=== PATIENT | female | born 1965 | race Caucasian/White ===

== ENCOUNTER → 2017-09-20 | Outpatient (REF) | payer OTHER, BC ==
[2017-09-20 19:59] LABS: APPEARANCE, URINE CLEAR (CLEAR); BACTERIA, URINE AUTO NEGATIVE (NEGATIVE); BILIRUBIN, URINE AUTO NEGATIVE (NEGATIVE); BLOOD, URINE BLOOD 1+ (NEGATIVE); COLOR, URINE STRAW (YELLOW); GLUCOSE, URINE (UA) AUTO NEGATIVE (NEGATIVE); KETONE, URINE AUTO NEGATIVE (NEGATIVE); LEUKOCYTE ESTERASE, URINE AUTO NEGATIVE (NEGATIVE); NITRITE, URINE AUTO NEGATIVE (NEGATIVE); PROTEIN, URINE AUTO NEGATIVE (NEGATIVE); RBC, URINE AUTO 0 /HPF (0-3); SPECIFIC GRAVITY URINE AUTO 1.008 (1.002-1.035); SQUAMOUS EPITHELIAL CELL UR AU 1 /HPF (0-6); UROBILINOGEN, URINE AUTO 0.2 mg/dL (0.0-2.0); WBC, URINE AUTO 0 /HPF (0-3)
== END ==
LOC: M SMT 17:05
DX: R31.0 Gross hematuria (principal)

== ENCOUNTER 2020-01-05 13:49 | Inpatient (IN) | payer BC, OTHER ==
[2020-01-05 15:25] VITALS: BP 109/70
[2020-01-05] MEDS ORDERED: MORPHINE 2 MG/ML 1ML VIAL (J2270) IV PRN (16:45)
[2020-01-05] MEDS ORDERED: HEPARIN SOD (PORCINE) 5000UNITS/ML 1ML VIAL/SYRINGE SQ SCH (16:45)
[2020-01-05] MEDS ORDERED: ACETAMINOPHEN TAB 650MG DOSE (2X325MG) PO PRN (16:45)
--- NOTE | 2020-01-05 17:04 | HPEPDOC ---
[facility] Medical History & Physical Date of Admission Jan 05, 2020 Date of Service: Jan 05, 2020 Attending Physician: ALEJANDRA SHERMAN MD History and Physical CHIEF COMPLAINT: Obstructive Ureter Stone HISTORY OF PRESENT ILLNESS: The is a 54yo female with past medical history of nephrolithiasis who presented to [facility] in [place], [place], after awakening at 4:30am with extreme L flank pain. She described the pain as a 10/10 stabbing pain. The pain initially started around her umbilicus before moving to the L flank. She had a previous temperature of 100.6 deg. She went to the ER in [place], where she was found to have an obstructive ureter stone. On other labs she had a mild CORDELIA with a creatinine of 1.3. Otherwise she was vitally stable. She was transferred to [facility] [place] for urology consultation and potential ureter stent placement surgery. At presentation to [facility] she was vitally stable and not in significant pain. No new complaints. Urology was consulted, and planned for a potential ureter stent placement. PAST MEDICAL HISTORY: 1. Previous Kidney stones (4) 2. Endometriosis s/p hysterectomy and salpingectomy 3. Carpel tunnel 4. Previous UTIs 5. Bursitis L knee PAST SURGICAL HISTORY: 1. Exploratory laparoscopy for endometriosis complicated by cardiac arrest 20y ago. 2. Total hysterectomy and salpingectomy 20y ago. 3. Carpel tunnel surgery. SOCIAL HISTORY: Marital status: 36y. 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 Quit when she was 18. Up to one pack a day. ETOH: Social drinker. Drinks up to 12 beers of Coors Light a week. Illicit drug use: Denies IV drug use: Denies FAMILY HISTORY: Father: at 70yo of COPD. Had pancreatic cancer Mother: Alive. Had breast cancer ALLERGIES: Please see below. REVIEW OF SYSTEMS: CONSTITUTIONAL: Positive for Fatigue HEENT: Positive for headache. CARDIOVASCULAR: Denies chest pain, palpatations, leg swelling. RESPIRATORY: Positive for sinus congestion and cough productive of green sputum from post nasal drip. Denies SOB, wheezing. GASTROINTESTINAL: Positive for nausea, diarrhea and constipation. Denies vomiting. GENITOURINARY: Positive for blood in the urine. Denies pyuria. SKIN: Denies any skin changes. NEUROLOGICAL: Denies numbness or tingling. HOME MEDICATIONS: Please see below. PHYSICAL EXAMINATION: VITALS: See below GENERAL APPEARANCE: Patient is alert and oriented and not in any acute distress. She appears her stated age and is overweight. . HEENT: Tongue is midline. CARDIOVASCULAR: RRR, S1 and S2 noted. No murmurs, gallops or rubs are appreciated LUNGS: Lungs are clear to auscultation. No wheezing, rales or rhonchi are noted. ABDOMEN: Abdomen is soft and nondistended. There is a 3/10 pain on palpation in the L lower quadrant. EXTREMITIES: There is no edema in the legs. LABORATORY DATA: See below. IMAGING: Jan 04, CT Abdomen/Pelvis. Dr. Rosenthal. "6mm Left ureteropelvic junction stone. Mild left hydronephrosis as well as edea and swelling of the left kidney." MICROBIOLOGY: Please see below. ASSESSMENT: The patient is a 54y female with a past medical history of kidney stones, presenting to the ED for an obstructive ureter stone. She is consulting urology today for possible ureter stent placement, and will be kept under management by the hospitalist team while inpatient. PLAN: 1. Obstructive Nephrolithiasis with Possible Pyelonephritis. -Consult with urology for possible stent placement. -NPO for procedure. -Continue fluids and fingersticks q6h -Continue patient on Toradol for pain management PRN -Continue IV fluids NS-She reports that she drink 3 large cups of water per day -Start Zosyn for pyelonephritis. 2. Elevated Creatinine -Unsure of patients baseline, though this is likely due to obstructive ureter stone. -Will likely resolve with stent placement. 3. DVT Prophylaxis -Mechanical sequentials Vital Signs Vital Signs Date Time Temp Pulse Resp B/P (MAP) Pulse Ox O2 Delivery O2 Flow Rate FiO2 01/05/20 15:25 98.1 91 19 109/70 (83) 95 Room Air Home Medications Scheduled PRN Acetaminophen (Acetaminophen) 325 Mg Tablet, 650 MG PO Q6H PRN for PAIN / FEVER Allergies Coded Allergies: No Known Allergies (Unverified , 01/05/20) GME ATTESTATION GME ATTESTATION My faculty preceptor for this patient encounter was physically present during the encounter and was fully available. All aspects of the patient interview, examination, medical decision making process, and medical care plan development were reviewed and approved by the faculty preceptor. The faculty preceptor is aware and concurs with the plan as stated in the body of this note and will attest to such by his/her cosignature. ATTENDING NOTE Attending Note: Patient seen and examined independently. Agree with student's note. TAVARES BARILLAS Jan 05, 2020 17:04 ALEJANDRA SHERMAN MD Jan 07, 2020 07:05
[2020-01-05] MEDS ORDERED: KETOROLAC 30 MG/ML 1ML VIAL IV PRN (17:30)
[2020-01-05 17:43] LABS: HEMATOCRIT 36.6 % (36.0-47.0); HEMOGLOBIN 11.7 g/dl (12.0-15.5); MEAN CORPUSCULAR HEMOGLOBIN 29.8 pg (27.0-33.0); MEAN CORPUSCULAR VOLUME 93.4 fl (80.0-96.0); PLATELET COUNT, AUTOMATED 225 10^3/uL (150-450); RED BLOOD COUNT 3.92 10^6/uL (4.00-5.40); WHITE BLOOD COUNT 18.5 10^3/uL (4.0-10.0)
[2020-01-05] MEDS ORDERED: ACET1TAB55 PO (17:45)
[2020-01-05] MEDS ORDERED: HumaLOG INSULIN (NovoLOG) PER UNIT SC SCH (18:00)
[2020-01-05 18:05] LABS: ALBUMIN 3.1 GM/DL (3.2-5.2); BILIRUBIN,TOTAL 0.6 MG/DL (0.2-1.0); CALCIUM LEVEL 8.3 MG/DL (8.5-10.1); CREATININE FOR GFR 1.21 MG/DL (0.55-1.30); GLOMERULAR FILTRATION RATE 49.4 (>51); POTASSIUM SERUM 4.9 MEQ/L (3.5-5.1); TOTAL PROTEIN 6.5 GM/DL (6.4-8.2)
[2020-01-05] MEDS: NS 1,000 ML IV SCH (18:06)
[2020-01-05 18:32] LABS: ATYPICAL LYMPH 1 % (0-5); BASOPHILS 1 % (0-1); LYMPHOCYTES 10 % (16-44); METAMYELOCYTES 1 % (0-0); MONOCYTES 4 % (0-5); NEUTROPHILS 69 % (28-66)
[2020-01-05 18:33] LABS: PLATELET ESTIMATE NORMAL (NORMAL)
[2020-01-05] MEDS: PIPERACILLIN/TAZOBACTAM SOD 3.375 GM in D5W MINI-BAG PLUS 50 ML IV SCH ×2 (18:35→23:49)
[2020-01-05] MEDS ORDERED: MIDAZOLAM INJ 2MG/2ML VIAL (J2250 PER 1MG) As Ordered ONE (20:26)
[2020-01-05] MEDS ORDERED: fentaNYL 100 MCG/2 ML INJECTION (J3010) As Ordered ONE (20:26)
[2020-01-05 20:40] VITALS: BP 132/78
[2020-01-05] MEDS ORDERED: LIDOCAINE 2% 5ML JELLY UROJET As Ordered ONE (20:48)
[2020-01-05] MEDS ORDERED: propofoL 200 MG/20 ML VIAL As Ordered ONE (21:22)
[2020-01-05] MEDS ORDERED: LIDOCAINE 2% 100MG/5ML SDV (FOR ANES.) As Ordered ONE (21:22)
--- NOTE | 2020-01-05 21:39 | ROOPDOC ---
[facility] Report Of Operation Report of Operation DATE OF PROCEDURE: 01/05/20 PREPROCEDURE DIAGNOSES: [L ureteral stone with UTI]. POSTPROCEDURE DIAGNOSES: [same]. PROCEDURE: [Cysto, L stent placement]. SURGEON: [Mita]MD ENVIRONMENTAL ENGINEERING INTERN: , ANESTHESIA: [local/sedation]. ESTIMATED BLOOD LOSS: Approximately [0] mL. COMPLICATIONS: [0]. REMARKS: [6 fr stent without string]. PROCEDURE NOTE: [see dictation]. DESCRIPTION OF PROCEDURE: [see dictation]. KEVIN CARPENTER MD Jan 05, 2020 21:39
[2020-01-05] MEDS ORDERED: KETOROLAC 30 MG/ML 1ML VIAL As Ordered ONE (21:48)
[2020-01-05] MEDS ORDERED: PERCOCET 5MG/325MG TAB PO PRN (22:00)
[2020-01-05] MEDS ORDERED: METOCLOPRAMIDE INJ 10MG/2ML VIAL (J2765 PER 1) IV PRN (22:00)
[2020-01-05] MEDS ORDERED: fentaNYL 100 MCG/2 ML INJECTION (J3010) IV PRN (22:00)
[2020-01-05] MEDS ORDERED: ONDANSETRON 4MG/2ML VIAL IV PRN (22:00)
[2020-01-05] MEDS ORDERED: LR 1,000 ML IV SCH (22:00)
[2020-01-05 22:15] VITALS: BP 112/66
[2020-01-05 22:45] VITALS: BP 112/65
[2020-01-05 23:45] VITALS: BP 111/53
[2020-01-06 00:45] VITALS: BP_SYST 107; BP_SYST 119; BP_DIAS 57; BP_DIAS 60
[2020-01-06 01:45] VITALS: BP 119/60
[2020-01-06 02:45] VITALS: BP 109/58
[2020-01-06] MEDS: NS 1,000 ML IV SCH ×2 (03:52→15:49)
[2020-01-06] MEDS: PIPERACILLIN/TAZOBACTAM SOD 3.375 GM in D5W MINI-BAG PLUS 50 ML IV SCH ×3 (05:58→18:32)
[2020-01-06 06:00] VITALS: BP 113/68
--- NOTE | 2020-01-06 06:06 | ECGEPIP ---
[facility] Test Date: 2020-01-05 Pat Name: YUNIEL SUAZO Department: Room: [place] [address] Gender: Female Rn First Assist: : 1965 Requested By: KEVIN Miguel Order Number: [id number] Reading MD: Angie Gutierrez Measurements Intervals [place] Rate: 81 P: 25 MS: 148 QRS: -3 QRSD: 82 T: -5 QT: 376 QTc: 438 Interpretive Statements SINUS RHYTHM POSSIBLE INFERIOR MYOCARDIAL INFARCTION, PROBABLY OLD NSSTTW ABN NO PRIOR PRWP Electronically Signed on 01-06-2020 6:06:09 EST by Angie Gutierrez
--- NOTE | 2020-01-06 07:45 | REP ---
INDICATION: CYSTO WITH STENT PLACEMENT. COMPARISON: None TECHNIQUE: Single spot view obtained using a portable C-arm device in my abstentia FINDINGS: The mid and upper portions of a left-sided pigtail catheter is present. The proximal portion appears to be in the region of the renal pelvis. IMPRESSION: As above. 3 seconds of fluoroscopy time was provided for the exam. <Electronically signed by Kevan Malik > 01/06/20 0753
[2020-01-06 07:52] LABS: HEMATOCRIT 32.6 % (36.0-47.0); HEMOGLOBIN 10.4 g/dl (12.0-15.5); MEAN CORPUSCULAR HEMOGLOBIN 29.6 pg (27.0-33.0); MEAN CORPUSCULAR HGB CONC 31.9 g/dl (32.0-36.5); MEAN CORPUSCULAR VOLUME 92.9 fl (80.0-96.0); PLATELET COUNT, AUTOMATED 203 10^3/uL (150-450); RED BLOOD COUNT 3.51 10^6/uL (4.00-5.40)
[2020-01-06 08:05] LABS: CREATININE FOR GFR 1.31 MG/DL (0.55-1.30); POTASSIUM SERUM 4.1 MEQ/L (3.5-5.1)
--- NOTE | 2020-01-06 11:41 | IPNPDOC ---
Text Note Date of Service The patient was seen on 01/06/20. NOTE Subjective: Patient seen and examined at bedside. Overnight underwent left ureteral stent placement. This morning has no medical complaints. Objective: VITALS: See below GENERAL APPEARANCE: Patient is alert and oriented and not in any acute distress. She appears her stated age and is overweight. . HEENT: NC/AT, EOMI, PERRL CARDIOVASCULAR: RRR, S1 and S2 noted. No murmurs, gallops or rubs are appreciated LUNGS: Lungs are clear to auscultation. No wheezing, rales or rhonchi are noted. ABDOMEN: soft, NT, ND, +BS EXTREMITIES: There is no edema in the legs. A/P: 54F transferred from [facility] for pyelonephritis with obstructive ureteral stone found on imaging. Patient was reported to be septic. Admitted for urology consultation with possible procedural intervention. #obstructive uropathy/history of nephrolithiasis - underwent stent placement last night - follow as per urology - assistance appreciated - continue antibiotics, IV fluids - contacted [facility] - UA was done but no urine cultures - will obtain one here - ordered #DVT prophylaxis - mechanical VS,Fishbone, I+O VS, Fishbone, I+O Laboratory Tests 01/05/20 17:18 01/06/20 07:30 Vital Signs Date Time Temp Pulse Resp B/P (MAP) Pulse Ox O2 Delivery O2 Flow Rate FiO2 01/06/20 06:00 99.5 79 18 113/68 (83) 96 Room Air I&O- Last 24 Hours up to 6 AM 01/06/20 06:00 Intake Total 1040 ml Output Total 875 ml Balance 165 ml ALEJANDRA SHERMAN MD Jan 06, 2020 11:41
--- NOTE | 2020-01-06 12:14 | IPNPDOC ---
Subjective Review oF Systems Chief Complaint The patient is a 54-year-old female admitted with a reason for visit of Obstructive Stone (6MM). Events since Last Encounter Pt feels much improved today. Some spasms. Temp to 99 range overnight. WBC trending down. General: Reports: Normal Appetite; Denies: ROS Unobtainable, Chills, Night Sweats, Fatigue, Malaise, Other Symptoms Constitutional: Denies: Fever, Chills, Sweats, Weakness, Malaise, Other Eyes: Denies: Pain, Vision change, Conjunctivae inflammation, Eyelid inflammation, Redness, Other ENT: Reports: Sinus Congestion, Post Nasal Drip Skin: Denies: Rash, Lesions, Jaundice, Bruising, Itching, Dry, Breakdown, Nail Changes, Other Pulmonary: Reports: Cough Gastrointestinal: Denies: Nausea, Vomiting, Abdominal Pain, Diarrhea, Constipation, Melena, Hematochezia, Other Symptoms Genitourinary: Reports: Frequency Objective Physical Examination General Exam: Alert, Cooperative, No Acute Distress Eye Exam: EOMI ENT EXAM: Atraumatic Chest Exam: Normal air movement Vital Signs/I&O Vital Signs Date Time Temp Pulse Resp B/P (MAP) Pulse Ox O2 Delivery O2 Flow Rate FiO2 01/06/20 06:00 99.5 79 18 113/68 (83) 96 Room Air I&O- Last 24 Hours up to 6 AM 01/06/20 06:00 Intake Total 1040 ml Output Total 875 ml Balance 165 ml Laboratory Data Labs 24H Laboratory Tests 2 01/05/20 17:18: Neutrophils (%) (Auto) , Nucleated Red Blood Cells % (auto) 0.0, Neutrophils 69H, Band Neutrophils 14H, Lymphocytes (Manual) 10L, Monocytes (Manual) 4, B asophils (Manual) 1, Metamyelocytes 1H, Atypical Lymphocytes 1, Platelet Estimate NORMAL, Anion Gap 4L, Glomerular Filtration Rate 49.4L, Lactic Acid Level 1.4, Calcium Level 8.3L, Total Bilirubin 0.6, Aspartate Amino Transf (AST/SGOT) 34, Alanine Aminotransferase (ALT/SGPT) 43, Alkaline Phosphatase 65, Total Protein 6.5, Albumin 3.1L, Albumin/Globulin Ratio 0.9L 01/06/20 07:30: Nucleated Red Blood Cells % (auto) 0.0, Anion Gap 6L, Glomerular Filtration Rate 45.0L, Calcium Level 8.0L CBC/BMP Laboratory Tests 01/05/20 17:18 01/06/20 07:30 Assessment/Plan Date Seen The patient was seen on 01/06/20. Patient Summary Impression: Improving post stenting of ureteral stone and possible UTI P: Check C&S from [facility]. If neg or if S known, she may be able to go home tomorrow if she continues to do this well. Plan/VTE VTE Prophylaxis Ordered?: Yes Plan Diet: Continue Current Anticipated Discharge: Home KEVIN CARPENTER MD Jan 06, 2020 12:14
[2020-01-06 14:00] VITALS: BP 118/76
[2020-01-06] MEDS: PERCOCET 5MG/325MG TAB PO PRN (16:06)
[2020-01-06 22:00] VITALS: BP 105/61
[2020-01-07] MEDS: PIPERACILLIN/TAZOBACTAM SOD 3.375 GM in D5W MINI-BAG PLUS 50 ML IV SCH ×3 (00:22→12:00)
[2020-01-07] MEDS: NS 1,000 ML IV SCH (02:06)
[2020-01-07] MEDS: PERCOCET 5MG/325MG TAB PO PRN (04:48)
[2020-01-07 06:00] VITALS: BP 110/59
[2020-01-07 08:03] LABS: HEMATOCRIT 32.4 % (36.0-47.0); HEMOGLOBIN 10.1 g/dl (12.0-15.5); MEAN CORPUSCULAR HEMOGLOBIN 29.7 pg (27.0-33.0); MEAN CORPUSCULAR HGB CONC 31.2 g/dl (32.0-36.5); MEAN CORPUSCULAR VOLUME 95.3 fl (80.0-96.0); PLATELET COUNT, AUTOMATED 205 10^3/uL (150-450)
--- NOTE | 2020-01-07 08:42 | IPNPDOC ---
Subjective Review oF Systems Chief Complaint The patient is a 54-year-old female admitted with a reason for visit of Obstructive Stone (6MM). Events since Last Encounter No complaint except H/A and URI sx General: Denies: ROS Unobtainable, Chills, Night Sweats, Fatigue, Malaise, Normal Appetite, Other Symptoms Constitutional: Denies: Fever, Chills, Sweats, Weakness, Malaise, Other ENT: Reports: Head Aches, Post Nasal Drip Skin: Denies: Rash, Lesions, Jaundice, Bruising, Itching, Dry, Breakdown, Nail Changes, Other Pulmonary: Reports: Cough Cardiovascular: Denies Chest Pain, Denies Palpitations, Denies Orthopnea, Denies Paroxysmal Noc. Dyspnea, Denies Edema, Denies Lt Headedness, Denies Other Symptoms Gastrointestinal: Denies: Nausea, Vomiting, Abdominal Pain, Diarrhea, Constipation, Melena, Hematochezia, Other Symptoms Genitourinary: Reports: Frequency Objective Physical Examination General Exam: Alert, Cooperative, No Acute Distress Eye Exam: EOMI ENT EXAM: Atraumatic Chest Exam: Normal air movement Vital Signs/I&O Vital Signs Date Time Temp Pulse Resp B/P (MAP) Pulse Ox O2 Delivery O2 Flow Rate FiO2 01/07/20 06:00 98.6 70 16 110/59 (76) 91 Room Air I&O- Last 24 Hours up to 6 AM 01/07/20 06:00 Intake Total 1790 ml Output Total 400 ml Balance 1390 ml Laboratory Data Labs 24H Laboratory Tests 2 01/07/20 07:13: Nucleated Red Blood Cells % (auto) 0.0 01/07/20 07:50: CBC/BMP Laboratory Tests 01/07/20 07:13 Assessment/Plan Date Seen The patient was seen on 01/07/20. Patient Summary A: S/P L stent placement. Apparently, no urine or blood cultures were done @ [facility] prior to antibiotics... P: Check KUB. Should be ok for discharge on pyridium prn and septra DS hs x 20 days. F/U in 1 week with [facility] Urology to arrange left eswl vs ureteroscopic stone extraction. Plan/VTE VTE Prophylaxis Ordered?: Yes Plan Diet: Continue Current Anticipated Discharge: Home KEVIN CARPENTER MD Jan 07, 2020 08:42
[2020-01-07 09:47] LABS: CALCIUM LEVEL 8.4 MG/DL (8.5-10.1); CREATININE FOR GFR 1.16 MG/DL (0.55-1.30); GLOMERULAR FILTRATION RATE 51.8 (>51); POTASSIUM SERUM 4.2 MEQ/L (3.5-5.1)
--- NOTE | 2020-01-07 09:53 | REP ---
INDICATION: F/U L Proximal ureteral stone post stenting. COMPARISON: Spot view obtained using a portable C-arm device on 01/05/2020. FINDINGS: KUB shows the intestinal gas pattern to be nonspecific. The organ silhouettes insofar as delineated are unremarkable. There is no evidence of free intraperitoneal air. The proximal portion of the left-sided double pigtail stent is unchanged. The distal portion is seen in the urinary bladder region on the left. Bilateral pelvic calcifications are identified likely phleboliths. This needs to be correlated clinically. IMPRESSION: As above. If necessary obtain noncontrast enhanced CT. <Electronically signed by Kevan Malik > 01/07/20 0935
[2020-01-07] MEDS ORDERED: PYRI1TAB5 PO (09:55)
[2020-01-07] MEDS ORDERED: BACT800T5 PO (09:55)
[2020-01-07] MEDS ORDERED: PERCOCET PO (09:57)
--- NOTE | 2020-01-07 10:36 | DS.PDOC ---
Discharge Summary General Date of Admission Jan 05, 2020 at 15:20 Date of Discharge 01/07/20 Specialist/Consultants Involve Urology Discharge Summary PROCEDURES PERFORMED DURING STAY: left ureteral stent DISCHARGE DIAGNOSES: 1. obstructive uropathy 2. nephrolithiasis COMPLICATIONS/CHIEF COMPLAINT: Obstructive Stone (6MM). HISTORY OF PRESENT ILLNESS: 54 F who presented to [facility] in [place], [place], after awakening at 4:30am with extreme L flank pain. She described the pain as a 10/10 stabbing pain. The pain initially started around her umbilicus before moving to the L flank. She had a previous temperature of 100.6 deg. She went to the ER in [place], where she was found to have an obstructive ureter stone, with CORDELIA. She was transferred to [facility] for urology consultation and potential ureter stent placement surgery. HOSPITAL COURSE: Patient seen and evaluated by urology. Started IV antibiotics, and underwent left ureteral stent placement. Renal function and leukocytosis improved. Follow up with urology, with recs for o/p follow up. Her pharmacy noted a sulfa allergy in the past, so antibiotics were changed to cipro. DISCHARGE MEDICATIONS: Please see below. ALLERGIES: Please see below. PHYSICAL EXAMINATION ON DISCHARGE: VITALS: See below GENERAL APPEARANCE: Patient is alert and oriented and not in any acute distress. She appears her stated age and is overweight. . HEENT: NC/AT, EOMI, PERRL CARDIOVASCULAR: RRR, S1 and S2 noted. No murmurs, gallops or rubs are appreciated LUNGS: Lungs are clear to auscultation. No wheezing, rales or rhonchi are noted. ABDOMEN: soft, NT, ND, +BS EXTREMITIES: There is no edema in the legs. LABORATORY DATA: Please see below. ACTIVITY: [As tolerated]. DISCHARGE PLAN: Discharge home DISCHARGE INSTRUCTIONS: 1. F/U in 1 week with [facility] Urology to arrange left eswl vs ureteroscopic stone extraction. DISCHARGE CONDITION: [Stable]. TIME SPENT ON DISCHARGE: 35 minutes. Vital Signs/I&Os Vital Signs Date Time Temp Pulse Resp B/P (MAP) Pulse Ox O2 Delivery O2 Flow Rate FiO2 01/07/20 06:00 98.6 70 16 110/59 (76) 91 Room Air I&O- Last 24 Hours up to 6 AM 01/07/20 06:00 Intake Total 1790 ml Output Total 400 ml Balance 1390 ml Laboratory Data Labs 24H Laboratory Tests 2 01/07/20 07:13: Nucleated Red Blood Cells % (auto) 0.0 01/07/20 07:50: Anion Gap 5L, Glomerular Filtration Rate 51.8, Calcium Level 8.4L CBC/BMP Laboratory Tests 01/07/20 07:13 01/07/20 07:50 Discharge Medications Scheduled Sulfamethoxazole/Trimethoprim (Bactrim Ds Tablet) 1 Each Tablet, 1 TAB PO BID Scheduled PRN Acetaminophen (Acetaminophen) 325 Mg Tablet, 650 MG PO Q6H PRN for PAIN / FEVER, (Reported) Oxycodone/Acetaminophen (Oxycodone-Acetaminophen 5-325) 1 Each Tablet, 1 TAB PO Q6HP PRN for MODERATE PAIN (PS 5-7) Phenazopyridine HCl (Pyridium) 200 Mg Tablet, 1 TAB PO TIDP PRN for urinary discomfort Allergies Coded Allergies: No Known Allergies (Unverified , 01/05/20) ALEJANDRA SHERMAN MD Jan 07, 2020 10:36
[2020-01-07] MEDS ORDERED: CIPR-249 PO (10:46)
--- NOTE | 2020-01-07 11:28 | REP ---
INDICATION: further eval as per kub. COMPARISON: None TECHNIQUE: Noncontrast enhanced stone protocol. FINDINGS: The lung bases are clear. Limited evaluation of the solid intra-organs and gallbladder show no gross abnormalities. Limited evaluation of the pancreas, adrenal glands, and right kidney show no gross abnormalities. A double pigtail stent is seen on the left the proximal portion of which appears to be within one of the superior pole calices. It is uncoiled. The distal portion of the stent is in the urinary bladder. There are no nephroliths. There is no hydronephrosis or hydroureter. No abnormal calcifications are seen along the course of the left stent. There are no abnormal urinary bladder calcifications. There are bilateral pelvic phleboliths. No free fluid or free air is seen. Limited evaluation of the bowel loops and the mesenteries show no gross abnormalities. There is mild perinephric stranding. Limited evaluation of the abdominal aorta and para-regions show no gross abnormalities. The osseous structures are within normal limits. IMPRESSION: Left-sided double pigtail stent, as described above. The proximal portion of the stent is uncoiled and is seen very close to, if not frankly breaching, the left upper pole cortex. There is mild left perinephric stranding. There is no chemo abnormal perinephric fluid collection. This finding should be correlated clinically with close follow-up. Other findings as described above. <Electronically signed by Kevan Malik > 01/07/20 [id number]
--- NOTE | 2020-01-08 14:04 | RO ---
DATE OF OPERATION: PREOPERATIVE DIAGNOSIS: Left ureteral stone with evidence of UTI. POSTOPERATIVE DIAGNOSIS: Left ureteral stone with evidence of UTI. PROCEDURE PERFORMED: * Cystoscopy. * Stent placement. SURGEON: Andrea Fan MD ANESTHESIA: General. INDICATIONS: This 54-year-old lady presented with evidence of urinary tract infection and obstructing 6 mm left proximal ureteral stone. She was transferred from [facility]. Her has previously been under the care of Dr. Soni. Her white count penny from 10 to 18, lactate 1.4. Urinalysis showed pyuria. PROCEDURE: After obtaining informed consent with the patient she was taken to the operating room, after adequate sedation and local anesthetic, she was prepped and draped in usual manner. 22-Indonesian diagnostic cystoscope was advanced into the bladder, the bladder inspected and no lesions were seen. Wire was advanced on the left side to the kidney under fluoroscopic control. We passed a 6-Indonesian universal stent over the wire and positioned it fluoroscopically in the kidney and bladder with string detached. Endoscopic and fluoroscopic confirmation of stent position was obtained. The bladder was emptied and the patient was transferred to recovery in satisfactory condition. DISPOSITION: She is to continue in the hospital for management of potential sepsis. She will eventually need a secondary procedure to deal with her stone and remove her stent. COMPLICATIONS: None. SPECIMEN: None. BLOOD LOSS: None. MTDD
--- NOTE | 2020-01-09 09:47 | CR ---
DATE OF CONSULTATION: 01/05/2020 REASON FOR CONSULTATION: Suspected sepsis related to left-sided stone disease. CHIEF COMPLAINT: Left-sided pain. HISTORY: This 54-year-old, 2, para 2 lady with prior hysterectomy, prior history of spontaneous stone passage on the left side, developed severe left flank and abdominal pain associated with nausea and vomiting and temperature elevation to 100.6 today. She was seen at [facility] where a CT scan revealed a 6 mm left proximal ureteral stone which is visible on plain film segments. There was some perinephric and periureteral stranding consistent with extravasation. White count was elevated to 10, repeat 18, lactate 1.4, creatinine elevated to 1.3. The patient has an intercurrent upper respiratory infection (URI). She is COVID negative. She has had no hypotension. Her past history is significant for a laparoscopic procedure that was complicated by cardiac arrest requiring defibrillation. Subsequent to this she had a successful abdominal hysterectomy and salpingectomy. Other surgeries include carpal tunnel syndrome surgery and root canal done under local. She does have a past history of urinary tract infections. SOCIAL HISTORY: She is , retired, a nonsmoker, she drinks socially. FAMILY HISTORY: Negative for stones. Positive for breast and pancreatic cancer. MEDICATIONS: She only takes occasional Motrin. ALLERGIES: She is sensitive to shellfish and SULFA DRUGS. She tends to get side effects from multiple medications. REVIEW OF SYSTEMS: Remarkable for URI symptoms. She does have a past history of headaches. She has a history of cardiac arrest with no ongoing cardiac symptoms or problems. She is not ordinarily limited in her activities by dyspnea or pain. The remainder of review of systems negative as noted in the chart. PHYSICAL EXAMINATION: Temperature is 98.1, pulse 91, respirations 19, blood pressure 109/70, saturation 95. General: She is an anxious lady who is awake, alert, and oriented. She is very concerned about the possible risks of general anesthesia. HEENT: She has some rhinorrhea. Her face is symmetrical. Full extraocular movements are noted. Neck is supple. Chest: Clear to auscultation. Cardiac exam: Regular rate and rhythm. Abdominal exam: Soft with some tenderness in the left flank and left upper quadrant. No peritoneal signs are noted. Extremities exam: No edema. Neurologic exam: Nonfocal. IMPRESSION: Possible sepsis related to left-sided stone disease in a patient with an intercurrent upper respiratory infection (URI). PLAN: I think it most prudent to be certain that her system is decompressed and to this end advise placement of a ureteral stent expeditiously. This can be done under sedation. The risks including infection, bleeding, anesthetic reaction, the need for additional or repeat procedures and the alternatives of percutaneous nephrostomy tube placement are discussed. She verbalizes understanding and wishes to proceed. Her questions are answered and she is agreeable to this plan. TIGIST
[2020-01-09] MEDS ORDERED: DOXY100C (13:53)
== END 2020-01-07 12:50 | disposition home or self-care (01) | DRG 465 ==
LOC: M MS5PR 15:20
PROVIDERS: ADMIT Internal Medicine; ATTEND Internal Medicine
PROC: 0T778DZ Dilation of Left Ureter with Intraluminal Device, Via Natural or Artificial Opening Endoscopic (ICD-10-PCS; principal; 2020-01-05 21:00)
DX: N20.1 Calculus of ureter (principal); N17.9 Acute kidney failure, unspecified; Z88.2 Allergy status to sulfonamides; Z79.899 Other long term (current) drug therapy; Z87.891 Personal history of nicotine dependence; N39.0 Urinary tract infection, site not specified

== ENCOUNTER → 2020-01-08 | Outpatient (CLI) | payer OTHER ==
[~2020-01-08] MED LIST: ACET1TAB55 PO; BACT800T5 PO; CIPR-249 PO; DOXY100C; FLOM0.4C39 PO; PERCOCET PO; PYRI1TAB5 PO
[2020-01-08 18:11] LABS: HEMOGLOBIN 11.5 g/dl (12.0-15.5); MEAN CORPUSCULAR HEMOGLOBIN 29.2 pg (27.0-33.0); MEAN CORPUSCULAR HGB CONC 31.1 g/dl (32.0-36.5); MEAN CORPUSCULAR VOLUME 93.9 fl (80.0-96.0); PLATELET COUNT, AUTOMATED 282 10^3/uL (150-450); RED BLOOD COUNT 3.94 10^6/uL (4.00-5.40); WHITE BLOOD COUNT 9.7 10^3/uL (4.0-10.0)
[2020-01-08 18:27] LABS: CALCIUM LEVEL 8.8 MG/DL (8.5-10.1); CREATININE FOR GFR 1.06 MG/DL (0.55-1.30); GLOMERULAR FILTRATION RATE 57.5 (>51)
== END ==
LOC: M LAB 16:17
PROVIDERS: ATTEND Urology
DX: N20.0 Calculus of kidney (principal)

== ENCOUNTER → 2020-01-09 | Outpatient (CLI) | payer OTHER | LOC: M LABSMTC 09:56 | PROVIDERS: ATTEND Anesthesiology | DX: Z01.812 Encounter for preprocedural laboratory examination (principal); Z20.828 Contact with and (suspected) exposure to other viral communicable diseases ==

== ENCOUNTER 2020-01-11 06:06 | Day surgery (SDC) | payer OTHER ==
[~2020-01-11] VITALS: Ht 167.6 cm; Wt 90.7 kg
[~2020-01-11 06:06] MED LIST changes: -FLOM0.4C39 PO; +LR 1,000 ML IV ONE; +ceFAZolin SOD 2 GM in IV 1 EA IV ONE
[2020-01-11] MEDS ORDERED: ONDANSETRON 4MG/2ML VIAL As Ordered ONE (07:49)
[2020-01-11] MEDS ORDERED: propofoL 200 MG/20 ML VIAL As Ordered ONE (07:49)
[2020-01-11] MEDS ORDERED: LIDOCAINE 2% 100MG/5ML SDV (FOR ANES.) As Ordered ONE (07:49)
[2020-01-11] MEDS ORDERED: fentaNYL 100 MCG/2 ML INJECTION (J3010) As Ordered ONE (07:49)
[2020-01-11] MEDS ORDERED: KETAMINE HCL 200 MG/20 ML VIAL As Ordered ONE (07:49)
[2020-01-11] MEDS ORDERED: MIDAZOLAM INJ 2MG/2ML VIAL (J2250 PER 1MG) As Ordered ONE (07:49)
[2020-01-11] MEDS ORDERED: GLYCOPYRROLATE INJ 0.2 MG/ML 2 ML VIAL As Ordered ONE (07:49)
[2020-01-11] MEDS ORDERED: FLOM0.4C39 PO (08:07)
--- NOTE | 2020-01-11 08:20 | ROOPDOC ---
[facility] Report Of Operation Report of Operation DATE OF PROCEDURE: 01/11/20 PREPROCEDURE DIAGNOSIS: Left kidney stone. POSTPROCEDURE DIAGNOSIS: Left kidney stone. PROCEDURE: Left extracorporeal shockwave lithotripsy, cystoscopy, removal of left ureteral stent. SURGEON: Dr. Dario Choi STEEL FITTER: None. ANESTHESIA: Monitored anesthesia care (MAC). OPERATIVE INDICATIONS: This is a 54-year-old female who underwent a cystoscopy with left ureteral stent placement recently for an obstructing 6mm proximal left ureteral stone. The stone was pushed up into the kidney at the time of stent placement. She is here today for treatment of the stone and stent removal. DESCRIPTION OF PROCEDURE: The patient brought to the operating room, and MAC anesthesia was administered. Prophylactic antibiotics were infused. She was then prepped and draped in the supine position in the usual sterile fashion. A flexible cystoscope was inserted into the bladder and the left ureteral stent was seen. The stent was grasped and withdrawn from the left collecting system intact. Next left sided extracorporeal shockwave lithotripsy was performed. Fluoroscopy was utilized to monitor stone position and fragmentation throughout the procedure. Shockwaves were then delivered to the left-sided kidney stone ungated. There were no arrhythmias. The stone did appear to fragment well. After 2500 shocks, the procedure was concluded. The patient was then awakened from anesthesia and transported to the recovery room in stable condition. ESTIMATED BLOOD LOSS: 0 mL. COMPLICATIONS: None. SPECIMENS: None. PLAN: The patient will followup in clinic in a few weeks with imaging prior to assess for residual stone burden. DARIO CHOI MD Jan 11, 2020 08:20
[2020-01-11 08:45] VITALS: BP 119/65
== END 2020-01-11 09:05 | disposition home or self-care (01) ==
LOC: M SDC 06:06
PROVIDERS: ATTEND Urology
DX: N20.0 Calculus of kidney (principal); T88.59XD Other complications of anesthesia, subsequent encounter; Z87.891 Personal history of nicotine dependence; Z88.1 Allergy status to other antibiotic agents; Z88.2 Allergy status to sulfonamides; Z90.710 Acquired absence of both cervix and uterus; Z91.013 Allergy to seafood; Z91.048 Other nonmedicinal substance allergy status
CPT/HCPCS: 52352; J2250; J2405; J3010

== ENCOUNTER → 2020-02-05 | Outpatient (CLI) | payer OTHER ==
[~2020-02-05] MED LIST changes: +FLOM0.4C39 PO; -LR 1,000 ML IV ONE; -ceFAZolin SOD 2 GM in IV 1 EA IV ONE
--- NOTE | 2020-02-05 15:13 | REP ---
INDICATION: CALCULUS OF KIDNEY. COMPARISON: Comparison KUB January 07, 2020.. TECHNIQUE: Supine single view of the abdomen and pelvis. FINDINGS: Bowel gas pattern is normal. The upper poles of the kidneys are not included in the field of view. No urinary tract calculus is visible. Phleboliths are noted in the pelvis. Flank stripes are intact. Psoas margins are symmetric. The previously noted left ureteral stent and the previously noted left mid intrarenal calculus are no longer apparent. IMPRESSION: No urinary tract calculus visible. The uppermost portions of each kidney are clipped from the field of view. <Electronically signed by Donnie Bird > 02/05/20 [id number]
== END ==
LOC: M RAD 11:58
PROVIDERS: ATTEND Urology
DX: N20.0 Calculus of kidney (principal)

== ENCOUNTER 2020-12-16 11:32 | Emergency (ER) | payer OTHER ==
[~2020-12-16] VITALS: Ht 165.1 cm; Wt 89.8 kg
[~2020-12-16 11:32] MED LIST changes: -DOXY100C; +DOXY100C3
--- OUTSIDE RECORDS SUMMARY | 2020-12-16 11:42 | CCD ---
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 Name Role Phone Lisset Arias MD Unavailable Unavailable Lisset Arias MD Unavailable Unavailable Lisset Arias MD Unavailable Unavailable Lisset Arias MD Unavailable Unavailable Lisset Arias MD Unavailable Unavailable Lisset Arias MD Unavailable Unavailable Lisset Arias MD Unavailable Unavailable Lisset Arias MD Unavailable Unavailable Lisset Arias MD Unavailable Unavailable Lisset Arias MD Unavailable Unavailable Lisset Arias MD Unavailable Unavailable Lisset Arias MD Unavailable Unavailable Lisset Arias MD Unavailable Unavailable Lisset Arias MD Unavailable Unavailable Lisset Arias MD Unavailable Unavailable Lisset Arias MD Unavailable Unavailable Lisset Arias MD Unavailable Unavailable Lisset Arias MD Unavailable Unavailable Lisset Arias MD Unavailable Unavailable Lisset Arias MD Unavailable Unavailable Lisset Arias MD Unavailable Unavailable Lisset Arias MD Unavailable Unavailable Lisset Arias MD Unavailable Unavailable Lisset Arias MD Unavailable Unavailable Lisset Arias MD Unavailable Unavailable Lisset Arias MD Unavailable Unavailable Lisset Arias MD Unavailable Unavailable Lisset Arias MD Unavailable Unavailable Lisset Arias MD Unavailable Unavailable Lisset Arias MD Unavailable Unavailable Lisset Arias MD Unavailable Unavailable Lisset Arias MD Unavailable Unavailable Lisset Arias MD Unavailable Unavailable Lisset Arias MD Unavailable Unavailable Lisset Arias MD Unavailable Unavailable Lisset Arias MD Unavailable Unavailable Lisset Arias MD Unavailable Unavailable Lisset Arias MD Unavailable Unavailable Lisset Arias MD Unavailable Unavailable Lisset Arias MD Unavailable Unavailable Lisset Arias MD Unavailable Unavailable Lisset Arias MD Unavailable Unavailable Lisset Arias MD Unavailable Unavailable Lisset Arias MD Unavailable Unavailable Lisset Arias MD Unavailable Unavailable Lisset Arias MD Unavailable Unavailable Lisset Arias MD Unavailable Unavailable Lisset Arias MD Unavailable Unavailable Lisset Arias MD Unavailable Unavailable Lisset Arias MD Unavailable Unavailable Lisset Arias MD Unavailable Unavailable Lisset Arias MD Unavailable Unavailable Lisset Arias MD Unavailable Unavailable Lisset Arias MD Unavailable Unavailable Lisset Arias MD Unavailable Unavailable Lisset Arias MD Unavailable Unavailable Lisset Arias MD Unavailable Unavailable Lisset Arias MD Unavailable Unavailable Lisset Arias MD Unavailable Unavailable Lisset Arias MD Unavailable Unavailable Lisset Arias MD Unavailable Unavailable Lisset Arias MD Unavailable Unavailable Lisset Arias MD Unavailable Unavailable Lisset Arias MD Unavailable Unavailable Lisset Arias MD Unavailable Unavailable Lisset Arias MD Unavailable Unavailable Lisset Arias MD Unavailable Unavailable Lisset Arias MD Unavailable Unavailable Lisset Arias MD Unavailable Unavailable Lisset Arias MD Unavailable Unavailable Lisset Arias MD Unavailable Unavailable Lisset Arias MD Unavailable Unavailable Lisset Arias MD Unavailable Unavailable Lisset Arias MD Unavailable Unavailable Lisset Arias MD Unavailable Unavailable Lisset Arias MD Unavailable Unavailable Lisset Arias MD Unavailable Unavailable Lisset Arias MD Unavailable Unavailable Lisset Arias MD Unavailable Unavailable Lisset Arias MD Unavailable Unavailable Lisset Arias MD Unavailable Unavailable Lisset Arias MD Unavailable Unavailable Lisset Arias MD Unavailable Unavailable DiBella, Quang Lindsey MD Unavailable Unavailable DiBella, Quang Lindsey MD Unavailable Unavailable DiBella, Quang Lindsey MD Unavailable Unavailable DiBella, Quang Lindsey MD Unavailable Unavailable DiBella, Quang Lindsey MD Unavailable Unavailable DiBella, Quang Lindsey MD Unavailable Unavailable DiBella, Quang Lindsey MD Unavailable Unavailable DiBella, Quang Lindsey MD Unavailable Unavailable LETTIERE, A DONOVAN PA Unavailable Unavailable LETTIERE, A DONOVAN PA Unavailable Unavailable LETTIERE, A DONOVAN PA Unavailable Unavailable LETTIERE, A DONOVAN PA Unavailable Unavailable LETTIERE, A DONOVAN PA Unavailable Unavailable LETTIERE, A DONOVAN PA Unavailable Unavailable LETTIERE, A DONOVAN PA Unavailable Unavailable LETTIERE, A DONOVAN PA Unavailable Unavailable LETTIERE, A DONOVAN PA Unavailable Unavailable LETTIERE, A DONOVAN PA Unavailable Unavailable LETTIERE, A DONOVAN PA Unavailable Unavailable LETTIERE, A DONOVAN PA Unavailable Unavailable LETTIERE, A DONOVAN PA Unavailable Unavailable LETTIERE, A DONOVAN PA Unavailable Unavailable LETTIERE, A DONOVAN PA Unavailable Unavailable LETTIERE, A DONOVAN PA Unavailable Unavailable LETTIERE, A DONOVAN PA Unavailable Unavailable LETTIERE, A DONOVAN PA Unavailable Unavailable LETTIERE, A DONOVAN PA Unavailable Unavailable LETTIERE, A DONOVAN PA Unavailable Unavailable LETTIERE, A DONOVAN PA Unavailable Unavailable LETTIERE, A DONOVAN PA Unavailable Unavailable LETTIERE, A DONOVAN PA Unavailable Unavailable LETTIERE, A DONOVAN PA Unavailable Unavailable LETTIERE, A DONOVAN PA Unavailable Unavailable LETTIERE, A DONOVAN PA Unavailable Unavailable LETTIERE, A DONOVAN PA Unavailable Unavailable LETTIERE, A DONOVAN PA Unavailable Unavailable LETTIERE, A DONOVAN PA Unavailable Unavailable LETTIERE, A DONOVAN PA Unavailable Unavailable LETTIERE, A DONOVAN PA Unavailable Unavailable Lay, Jermaine Unavailable Unavailable Lay, Jermaine Unavailable Unavailable Lay, Jermaine Unavailable Unavailable Lay, Jermaine Unavailable Unavailable Lay, Jermaine Unavailable Unavailable Lay, Jermaine Unavailable Unavailable DiBella, Quang Lindsey MD Unavailable Unavailable DiBella, Quang Lindsey MD Unavailable Unavailable DiBella, Quang Lindsey MD Unavailable Unavailable DiBella, Qunag Lindsey MD Unavailable Unavailable DiBella, Quang Lindsey MD Unavailable Unavailable DiBella, Quang Lindsey MD Unavailable Unavailable DiBella, Quang Lindsey MD Unavailable Unavailable DiBella, Quang Lindsey MD Unavailable Unavailable HINA, THIEN PA Unavailable Unavailable HINA, THIEN PA Unavailable Unavailable HINA, THIEN PA Unavailable Unavailable HINA, THIEN PA Unavailable Unavailable HINA, THIEN PA Unavailable Unavailable HINA, THIEN PA Unavailable Unavailable HINA, THIEN PA Unavailable Unavailable HINA, THIEN PA Unavailable Unavailable HINA, THIEN PA Unavailable Unavailable HINA, THIEN PA Unavailable Unavailable HINA, THIEN PA Unavailable Unavailable HINA, THIEN PA Unavailable Unavailable HINA, THIEN PA Unavailable Unavailable HINA, THIEN PA Unavailable Unavailable HINA, THIEN PA Unavailable Unavailable HINA, THIEN PA Unavailable Unavailable HINA, THIEN PA Unavailable Unavailable HINA, THIEN PA Unavailable Unavailable HINA, THIEN PA Unavailable Unavailable HINA, THIEN PA Unavailable Unavailable HINA, THIEN PA Unavailable Unavailable HINA, THIEN PA Unavailable Unavailable HINA, THIEN PA Unavailable Unavailable HINA, THIEN PA Unavailable Unavailable HINA, THIEN PA Unavailable Unavailable HINA, THIEN PA Unavailable Unavailable HINA, THIEN PA Unavailable Unavailable HINA, THIEN PA Unavailable Unavailable HINA, THIEN PA Unavailable Unavailable HINA, THIEN PA Unavailable Unavailable HINA, THIEN PA Unavailable Unavailable HINA, THIEN PA Unavailable Unavailable HINA, THIEN PA Unavailable Unavailable HINA, THIEN PA Unavailable Unavailable HINA, THIEN PA Unavailable Unavailable HINA, THIEN PA Unavailable Unavailable Re-disclosure Warning The records that you are about to access may contain information from federally-assisted alcohol or drug abuse programs. If such information is present, then the following federally mandated warning applies: This information has been disclosed to you from records protected by federal confidentiality rules (42 CFR part 2). The federal rules prohibit you from making any further disclosure of this information unless further disclosure is expressly permitted by the written consent of the person to whom it pertains or as otherwise permitted by 42 CFR part 2. A general authorization for the release of medical or other information is NOT sufficient for this purpose. The Federal rules restrict any use of the information to criminally investigate or prosecute any alcohol or drug abuse patient.The records that you are about to access may contain highly sensitive health information, the redisclosure of which is protected by Article 27-F of the [facility] Public Health law. If you continue you may have access to information: Regarding HIV / AIDS; Provided by facilities licensed or operated by the [facility] Office of Mental Health; or Provided by the [facility] Office for People With Developmental Disabilities. If such information is present, then the following [facility] mandated warning applies: This information has been disclosed to you from confidential records which are protected by state law. State law prohibits you from making any further disclosure of this information without the specific written consent of the person to whom it pertains, or as otherwise permitted by law. Any unauthorized further disclosure in violation of state law may result in a fine or fpc sentence or both. A general authorization for the release of medical or other information is NOT sufficient authorization for further disc losure. Allergies and Adverse Reactions Type Description Substance Reaction Status Data Source(s ) Drug allergy sulfacetamide sulfacetamide [facility] Drug allergy Estrogens Estrogens [facility] Family History Family Member Name Family Member Gender Family Member Status Date o f Status Description Data Source(s) Unknown Unknown Problem [facility] ([facility] mother Encounters Encounter Providers Location Date Indications Data Source(s ) Outpatient Attender: DONOVAN florian 12/13/2020 10:20:00 AM EDT [facility] ([facility]) Outpatient Attender: Jermaine Raoerrer: Vanessa Sheets 11/01/2020 09:01:00 AM EDT - 11/01/2020 09:49:[address] [facility] Outpatient Attender: Vanessa Arias MD 10/04/2020 01:36:0 0 PM EDT SCREENING [facility] SCREENING Outpatient Attender: Vanessa Arias MDReferrer: Vanessa hodgson MD 10/04/2020 12:54:00 PM EDT - 10/04/2020 01:28:[address] [facility] Unknown [address] [facility] [place] [id number] 02/19/2020 12:00:00 AM EST eCW1 ([facility]) [place]op [place] [address] [facility] [place] [address] 02/05/2020 12:00:00 AM EST eCW1 ([facility] Unknown [address] [facility] [place] [address] 01/11/2020 12:00:00 AM EST eCW1 ([facility]) Unknown [address] [facility] [place] [address] 01/10/2020 12:00:00 AM EST eCW1 ([facility]) Outpatient [address] [facility] [place] [address] 01/08/2020 12:00:00 AM EST eCW1 ([facility]) Unknown [address] [facility] [place] [place] [address] 01/08/2020 12:00:00 AM EST eCW1 ([facility]) Emergency Referrer: Donovan Bell MD 12:41:00 PM EST - 01/06/2020 12:25:19 PM EST 6 ml stone on left side, uti and fever [facility] 6 ml stone on left side, uti and fever Emergency Attender: Donovan Bell MD 09:35:00 AM EST - 01/05/2020 02:37:00 PM EST SIDE PAIN [facility] SIDE PAIN Patient discharged. Outpatient Attender: THIEN solano 01/02/2020 01:15:00 PM EST [facility] ([facility], [facility]) Medications Medication Brand Name Start Date Product Form Dose Route Admi nistrative Instructions Pharmacy Instructions Status Indications Reaction Description Data Source(s) doxycycline hyclate 100 MG Oral Capsule [Vibramycin] V ibramycin 100 MG Vibramycin 100 MG 01/08/2020 12:00:00 AM EST 1.0 {capsule} active Vibramycin 100 MG eCW1 ([facility]) doxycycline hyclate 100 MG Oral Capsule [Vibramycin] V ibramycin 100 MG Vibramycin 100 MG 01/08/2020 12:00:00 AM EST 1.0 {capsule} suspended Vibramycin 100 MG eCW1 ([facility]) doxycycline hyclate 100 MG Oral Capsule [Vibramycin] V ibramycin 100 MG Vibramycin 100 MG 01/08/2020 12:00:00 AM EST 1.0 {capsule} suspended Vibramycin 100 MG eCW1 ([facility]) doxycycline hyclate 100 MG Oral Capsule [Vibramycin] V ibramycin 100 MG Vibramycin 100 MG 01/08/2020 12:00:00 AM EST 1.0 {capsule} suspended Vibramycin 100 MG eCW1 ([facility]) doxycycline hyclate 100 MG Oral Capsule [Vibramycin] V ibramycin 100 MG Vibramycin 100 MG 01/08/2020 12:00:00 AM EST 1.0 {capsule} active Vibramycin 100 MG eCW1 ([facility]) doxycycline hyclate 100 MG Oral Capsule [Vibramycin] V ibramycin 100 MG Vibramycin 100 MG 01/08/2020 12:00:00 AM EST 1.0 {capsule} active Vibramycin 100 MG eCW1 ([facility]) [place] (No Known Home Medications) 01/05/2020 10:17:13 AM EST active [facility] Fluocinonide 0.0005 MG/MG Topical Ointment Fluocinonide 09/25/2019 02:45:43 PM EDT 1 APPLIC completed [facility] Insurance Providers Payer name Policy type / Coverage type Policy ID Covered constitution party ID Covered constitution party's relationship to pacheco Policy [place] Plan Information [employer] of [facility] Other [id number] Se [id number] BCBS [facility] Other [id number] Se [id number] [id number] [employer] of [facility] Other [id number] Se lf [id number] [employer] of [facility] Other [id number] Se lf [id number] [employer] of [facility] Other [id number] Se lf [id number] [employer] of [facility] Other [id number] Se lf [id number] [employer] of [facility] Other [id number] Se lf [id number] [employer] of [facility] Other [id number] Se lf [id number] [employer] of [facility] Other [id number] Se lf [id number] [employer] of [facility] Other [id number] Se lf [id number] [employer] [facility] [id number] SP [id number] BC BS [place] [facility] FEDERAL [id number] [employer] [facility] O [id number] S [id number] [employer] [facility] [id number] SP [id number] [employer] [facility] [id number] SP [id number] [employer] [facility] [id number] SP [id number] [employer]BS [place] [facility]307 [id number] SP [id number] [employer] [id number] Self [id number] [employer] [facility] [id number] SP [id number] [employer] [id number] Self [id number] [facility] [id number] SP [id number] Problems, Conditions, and Diagnoses Code Display Name Description Problem Type Effective Dates Data Source(s) 6 ml stone on left side, uti and fever 6 ml ston e on left side, uti and fever Diagnosis 01/06/2020 12:25:23 PM [facility] N20.0 Kidney stone Renal calculus, left Problem 01/08/2020 12 :00:00 AM EST eCW1 ([facility]) Surgeries/Procedures Procedure Description Date Indications Data Source(s) OFFICE OUTPATIENT VISIT 15 MINUTES 12/13/2020 12:00:00 AM EDT [facility] [place]) CT Abd/pel w/o contrast 01/05/2020 09:52:00 AM [facility] CT Abd/pel w/o contrast 01/05/2020 09:52:00 AM [facility] Nucleic acid assay (procedure) 01/05/2020 12:00:00 AM [facility] Nucleic acid assay (procedure) 01/05/2020 12:00:00 AM [facility] Results ID Date Data Source [id number] 11/01/2020 09:03:00 AM EDT [facility] Name: LALA SUAZO : 1965 Age: 55 MR#: [id number] Admit Date: 11/01/20 Provider: Jermaine Chun MD Room #: Consulting Provider: Dictation Date: 11/01/20 Intake Vital Signs 11/01/20 09:03 Current Height 5 ft 4 in Current Weight 197 lb Weight Measurement Method Standing Scale BMI 33.7 BP 132/86 Blood Pressure Location Lt brachial Position Sitting Respiration 18 Pulse 72 Pulse Strength Normal Pulse Source Pulse Oximeter Temp 97.5 F L Temp Source Temporal Artery Scan Pulse Oximetry (%) 98 Oxygen Delivery Method room air Intake Visit Reasons: Screening Colonoscopy Nurse Note: Patient is here to discuss colonoscopy. She has never had one. No family history of colon cancer. Vehicle Service Agent Required: No Accompanied by: Self / Same as Patient Is patient in pain?: No Allergies Estrogens Allergy (Unknown, Verified 01/05/20 10:16) sulfacetamide [Sulfacetamide] Allergy (Unknown, Verified 01/05/20 10:16) HIV Testing Offer - ages 13-64 Requirement for HIV testing offer been met?: Patient reports past refusal Coronavirus Screening Screening Are you currently positive or on isolation for COVID ?: No Do you have any NEW signs of one or more of the following?: no symptoms Do you have NEW signs of at least two of the following?: no symptoms HPI Additional HPI HPI Details: Ms. Suazo is here today for to discuss sc reening colonoscopy based on age criteria. She is a 55-year-old female with no significant past medical history. She has a surgical history significant for lap hysterectomy, approximately 20 years ago. She reports that she went into cardiac arrest during this surgery. She has no prior colonoscopies. She denies GI symptoms including change in bowel habits, rectal bleeding, or diarrhea. She has a history of chronic constipation that has not changed. She has no family history of colon cancer or colon polyps. [facility] Medical History Renal calculus Surgical History (Updated 11/01/20 @ 09:09 by Vanessa Barcenas) H/O: hysterectomy History of carpal tunnel surgery ( 1999) History of oral surgery Family History (Updated 11/01/20 @ 09:08 by Vanessa Barcenas) Sister Breast cancer Father Prostate cancer Social History Does the Patient have a Healthcare Proxy: No Does Patient have a DNR?: No Does Patient have a Living Will?: No Smoking Status: Never smoker Review of Systems Const All systems reviewed are unremarkable except as noted in HPI and below Reports system reviewed and no additional complaints, except as documented Eyes Reports system reviewed and no additional complaints, except as documented ENT Reports system reviewed and no additional complaints, except as documented Card Reports system reviewed and no additional complaints, except as documented Resp Reports system reviewed and no additional complaints, except as documented GI Reports system reviewed and no additional complaints, except as documented Genitourinary: Reports system reviewed and no additional complaints, except as documented Musc Reports system reviewed and no additional complaints, except as documented Skin/Breast Reports system reviewed and no additional complaints, except as documented Neuro Reports system reviewed and no additional complaints, except as documented Psych Reports system reviewed and no additional complaints, except as documented Endo Reports system reviewed and no additional complaints, except as documented Daniel/Lymph Reports system reviewed and no additional complaints, except as documented Aller/Immun Reports system reviewed and no additional complaints, except as documented Exam Const General: cooperative, healthy appearing, comfortable and no acute distress HENMT Head: normocephalic Ears: external ears normal General nose exam: external nose normal Mouth: moist mucous membr anes Eyes Conjunctivae: conjunctivae normal Sclera: sclerae normal Neck Neck: no lymphadenopathy and supple Resp Effort Inspection: normal respiratory effort and no respiratory distress Auscultation: clear to auscultation bilaterally Cardio Rate: regular rate Rhythm: regular rhythm GI Palpation: soft and nontender Percussion: normal to percussion Auscultation: normal bowel sounds Skin Rashes: no rashes Neuro General: patient alert, patient awake and patient oriented x3 Extrem General: no pedal edema Psych Appearance: grossly normal Assessment Plan Assessment Plan (1) Encounter for screening colonoscopy: Code(s): Z12.11 - Encounter for screening for malignant neoplasm of colon Plan: Ms. Suazo was seen today to discuss screening colonoscopy based on age criteria. She is a 55-year-old female with no significant past medical history. She has a surgical history significant for lap hysterectomy, approximately 20 years ago. She reports that she went into cardiac arrest during this surgery. She has no prior colonoscopies. She denies GI symptoms including change in bowel habits, rectal bleeding, or diarrhea. She has a history of chronic constipation that has not changed. She has no family history of colon cancer or colon polyps. The procedure and its indications were discussed in depth. The need for bowel prep was also discussed. Risks, benefits, and alternatives were reviewed. Risks include but are not limited to incomplete procedure, missed pathology, bleeding, infections, and bowel perforations requiring emergency surgery. The risks of anesthesia were also discussed. Ample time was given for questions, all her questions were answered. Patient voices understanding and wishes to proceed. She should undergo medical clearance prior to procedure, based on history of possible cardiac arrest during anesthesia in the past. Coding Level of Care Code 28565 New Pt Intermediate Comp Exam Expanded Problem Focused Diagnoses Encounter for screening colonoscopy Z12.11 Additional Codes Intake - Is patient in pain?: No (1126F) Dictated by: <Electronically signed by Jermaine Chun MD> Jermaine Chun MD 11/03/20 1203 Jermaine Chun MD SIGNATURE DA Report Cosigners: D: TAYLOR 11/01/20902 T: CORY 11/01/20902 CC: Name Value Range Interpretation Code Description Data Roberta rce(s) Supporting Document(s) ID Date Data Source [id number] 10/04/2020 09:42:00 PM EDT [facility] [address] [place] [address] [phone] NAME SEX PT STATUS ACCOUNT NUMBER LALA SUAZO REG REF [id number] ORDERING PHYSICIAN LOCATION MEDICAL RECORD NO. Vanessa Arias MD MAMMO [id number] ATTENDING PHYSICIAN DATE OF DATE OF EXAM/TIME Vanessa Arias MD 1965 10/04/201345 TYPE / EXAM 3D DIG MAMMO SCREEN BILAT REASON FOR EXAM Screening for breast cancer LAST CLINICAL BREAST EXAM: 10/04/2020 FIVE YEAR RISK: 2.2% LIFETIME RISK: 14.8% FAMILY HISTORY OF BREAST CARCINOMA: sister COMPARISON: 09/15/2017 and 01/24/2015 2D bilateral digital mammogram in the CC and MLO projections was performed with supplemental 3D tomosynthesis of both breasts. FINDINGS: Craniocaudad and oblique lateral views of the breasts were obtained. The breasts are primarily of fat density. There is no dominant mass, suspicious clustered microcalcification or architectural distortion. IMPRESSION: No mammographic evidence of malignancy. Yearly screening recommended. OVERALL FINAL ASSESSMENT OF FINDINGS BI-RADS 2 - Benign findings OVERALL FINAL ASSESSMENT OF THE BREAST COMPOSITION Breast Density Classification: A Description: The breasts are almost entirely fatty. Note: for findings of BIRADS 0, our office will contact the patient to arrange further mammographicand/or ultrasound imaging as needed. If MRI is recommended, this should be ordered and scheduled by the ordering provider's office. This mammogram was read with the assistance of Moi, an FDA-approved computer-aided detection system for mammography. Reported By Veronica Vallejo MD on 10/04/202141 Signed By Veronica Vallejo MD on 10/04/202200 Date Time CC: Veronica Vallejo MD; Vanessa Arias MD Techn: EBEBR Trans Dt/Tm: Trans by: DT Prt Dt/Tm: 9: Total DLP = 0.00 mGy-cm : Total Radiation Dose = 0.0000 mSv Lifetime Dose: 10.2150 mSv Name Value Range Interpretation Code Description Data Roberta rce(s) Supporting Document(s) ID Date Data Source [id number] 10/04/2020 12:55:00 PM EDT [facility] Patient Name: LALA SUAZO : 1965 Sex: F Pt Unit #: [id number] Location:[facility] Provider: Visit Date/Time: 10/04/20 Primary Insurance: P Secondary Insurance: Self Pay Intake Vital Signs 10/04/20 13:02 Current Height 5 ft 4 in Current Weight 196 lb Weight Measurement Method Standing Scale BMI 33.6 BP 134/60 Blood Pressure Location Rt brachial Position Sitting Respiration 14 Pulse 68 Pulse Strength Normal Pulse Source Pulse Oximeter Pulse Oximetry (%) 98 Oxygen Delivery Method room air Intake Visit Reasons: Annual Physical Nurse Note: Annual Physical - Has apt for Mammo at 2pm, No additional concerns today - she is doing really well Vehicle Service Agent Required: No Accompanied by: Self / Same as Patient Is patient in pain?: No Allergies Estrogens Allergy (Unknown, Verified 01/05/20 10:16) sulfacetamide [Sulfacetamide] Allergy (Unknown, Verified 01/05/20 10:16) Medications - Last Reconciled 10/04/20 by Vanessa Arias M.D. No Known Home Medications Is last menstrual period known: No Post menopausal: Yes Patient : No Fall Risk History of falls: No Ambulatory Aid:: None Gait/Transferring:: Normal Medications:: No High Risk Medications PHQ-2/9 Over the last 2 weeks, how often have you been bothered by any of the following problems? 1. Little interest or pleasure in doing things: not at all 2. Feeling down, depressed, or hopeless: not at all Total score: 0 HIV Testing Offer - ages 13-64 Requirement for HIV testing offer been met?: Patient reports past refusal SBIRT Annual Questionnaire Are you currently in recovery for alcohol or substance use?: No How many times in the past year have you had 4 or more drinks in a day?: None How many times in the past year have you used a recreational drug or used a prescription medication for nonmedical reasons?: None Do you need a note to return Do you need a note to return to daycare/school/sports/work: No HPI Additional HPI HPI Details: doing well, had kidney stone in january, no problems since, due labs and mammo, FH colon cancer,, needs colonoscopy PFSH Medical History Renal calculus Surgical History H/O: hysterectomy Family History Sister Breast cancer Father Colon cancer Social History Does the Patient have a Healthcare Proxy: No Does Patient have a DNR?: No Does Patient have a Living Will?: No Smoking Status: Never smoker Review of Systems Const Denies chills, Denies fatigue, Denies fever(s), Denies headache(s), Denies night sweats, Denies poorappetite, Denies weakness, Denies weight gain and Denies weight loss Eyes Denies blurry vision, Denies diplopia and Denies eye discharge ENT Denies vertigo, Denies dizziness, Denies otalgia, Denies headache(s), Denies nasal congestion and Denies sore throat Card Denies chest pain, Denies palpitations and Denies dyspnea Resp Denies cough, Denies dyspnea and Denies wheezing GI Denies abdominal pain, Denies constipation, Denies diarrhea, Denies nausea and Denies vomiting Genitourinary: Denies abnormal vaginal bleeding, metrorrhagia or dysuria Musc Denies back pain, Denies arthralgias, Denies limited range of motion and Denies numbness Skin/Breast Denies breast pain, Denies lesions and Denies rash Neuro Denies vertigo, Denies dizziness, Denies headache(s), Denies numbness and Denies weakness Psych Denies abnormal sleep pattern, Denies anxiety, Denies depression and Denies irritability Endo Denies fatigue, Denies polydipsia, Denies polyuria and Denies palpitations Daniel/Lymph Denies easy bleeding, Denies easy bruising and Denies lymphadenopathy Aller/Immun Denies wheezing Exam Const General: cooperative, healthy appearing and no acute distress Nutritional Appearance: well nourished [facility] Head: normal to inspection, normocephalic and atraumatic Ears: TM's normal bilaterally and EAC's normal General nose exam: external nose normal; No no nasal discharge noted Mouth: oral mucosae normal Throat: posterior oropharynx normal and no postnasal drainage Eyes General: appearance normal, both eyes and all related structures Conjunctivae: conjunctivae normal Sclera: sclerae normal Neck Neck: normal visual inspection and full ROM Thyroid: thyroid normal Lymphatic: no lymphadenopathy noted Chest Chest: normal inspection of the chest Breast/Axilla Inspection: normal inspection of the breasts and normal inspection of the axillae Breast/Axilla Palpation: normal palpation of the breasts and normal palpation of the axillae Resp Effort Inspection: normal respiratory effort Auscultation: no rales, no rhonchi and no wheezes Cardio Rate: regular rate Rhythm: regular rhythm Heart Sounds: no murmurs GI Inspection: Yes normal to inspection Palpation: soft, no masses and nontender Auscultation: no rmal bowel sounds Musc Cervical Spine: cervical ROM normal Thoracic/Lumbar Spine: thoracic and lumbar spine normal to inspection Skin Lesions: no lesions Rashes: no rashes Neuro General: patient alert and patient awake Cranial Nerves: hearing normal Cognition: normal cognition Motor: muscle tone normal throughout Sensory Exam: no sensory deficits noted Extrem General: no clubbing, cyanosis or edema Psych Appearance: grossly normal Mental Status: mental status grossly normal Assessment Plan Assessment Plan (1) Encounter for annual health examination: Code(s): Z00.00 - Encounter for general adult medical examination without abnormal findings (2) Renal calculus: Status: Acute Code(s): N20.0 - Calculus of kidney SNOMED Code(s): 49285831 Category: Medical (3) Encounter for routine adult medical exam with abnormal findings: Code(s): Z00.01 - Encounter for general adult medical examination with abnormal findings Plan: generally doing well, discussed diet, has been active but eating and drinking more, need for colonoscopy, having mammo, see yearly Orders: Orders 3D DIG MAMMO SCREEN BILAT Today Z12.31 - Encounter for screening mammogram for malignant neoplasm ofbreast CBC W AUTO DIFF 2 Weeks E55.9 - Vitamin D deficiency, unspecified, E78.5 - Hyperlipidemia, unspecified CMP 2 Weeks E55.9 - Vitamin D deficiency, unspecified, E78.5 - Hyperlipidemia, unspecified LIPID PANEL 2 Weeks E55.9 - Vitamin D deficiency, unspecified, E78.5 - Hyperlipidemia, unspecified TSH 2 Weeks E55.9 - Vitamin D deficiency, unspecified, E78.5 - Hyperlipidemia, unspecified Vitamin D 25-OH 2 Weeks E55.9 - Vitamin D deficiency, unspecified, E78.5 - Hyperlipidemia, unspecified Referrals General Surgery Referral Z12.11 - Encounter for screening for malignant neoplasm of colon Coding Level of Care Code 32552 Well 40- 64 (Est) Diagnoses Encounter for annual health examination Z00.00 Renal calculus N20.0 Encounter for routine adult medical exam with abnormal findings Z00.01 <Electronically signed by Vanessa Arias MD> 10/04/20 1607 Name Value Range Interpretation Code Description Data Roberta rce(s) Supporting Document(s) ID Date Data Source URINE CULTURE 01/09/2020 12:00:00 AM EST eCW1 ([facility]) Name Value Range Interpretation Code Description Data Roberta rce(s) Supporting Document(s) Laboratory studies (set) URINE CULTU RE eCW1 ([facility]) ID Date Data Source Basic Metabolic Profile (BMP) 01/08/2020 12:00:00 AM EST eCW 1 ([facility]) Name Value Range Interpretation Code Description Data Roberta rce(s) Supporting Document(s) 57.5 >51 GLOMERULAR FILTRATION RATE eCW 1 ([facility]) 75 70-100 GLUCOSE, FASTING eCW1 ([facility]) 11 7-18 BLOOD UREA NITROGEN eCW1 ([facility]) 1.06 0.55-1.30 CREATININE FOR GFR eCW1 ([facility]) 25 21-32 CARBON DIOXIDE LEVEL eCW1 ([facility]) 108 98-107 CHLORIDE LEVEL eCW1 ([facility]) 4.0 3.5-5.1 POTASSIUM SERUM eCW1 ([facility]) 141 136-145 SODIUM LEVEL eCW1 ([facility]) 8.8 8.5-10.1 CALCIUM LEVEL eCW1 ([facility]) ID Date Data Source CBC - Complete Blood Count 01/08/2020 12:00:00 AM EST eCW1 ( [facility]) Name Value Range Interpretation Code Description Data Roberta rce(s) Supporting Document(s) 3.94 4.00-5.40 RED BLOOD COUNT eCW1 ([facility]) 9.7 4.0-10.0 WHITE BLOOD COUNT eCW1 ([facility]) 11.5 12.0-15.5 HEMOGLOBIN eCW1 ([facility]) 37.0 36.0-47.0 HEMATOCRIT eCW1 ([facility]) 31.1 32.0-36.5 MEAN CORPUSCULAR HGB CONC eCW1 ([facility]) 29.2 27.0-33.0 MEAN CORPUSCULAR HEMOGLOB IN eCW1 ([facility]) 93.9 80.0-96.0 MEAN CORPUSCULAR VOLUME e CW1 ([facility]) 282 150-450 PLATELET COUNT, AUTOMATED eCW1 ([facility]) 12.3 11.5-14.5 RED CELL DISTRIBUTION WID TH eCW1 ([facility]) ID Date Data Source [id number] 01/05/2020 01:28:00 PM [facility] THIS RP PANEL TESTS FOR SARS-CoV -2,(COVID-19)FilmArray Respiratory Panel is a Multiplexed NAAT-PCR testNORMAL VALUE FOR ALL 20 PATHOGENS IS "NOT DETECTED".The FilmArray RP panel detects Influenza A H1,H3 [id number] H1 viruses,Influenza B virus, Respiratory syncytialvirus, Human metapneumovirus,Parainfluenza virus 1,2,3, and4, Adenovirus,Rhino/Enterovirus,Coronavirus HKU 1, Nl63,OC43, and 229E,Bordetella pertussis, Bordetellaparapertussis, Mycoplasma pneumoniae and Chlamydiapneumoniae, SARS-CoV-2 (COVID 19).THIS TEST HAS NOT BEEN EVALUATED FOR USE WITH SPECIMENSOTHER THAN NASOPHARYNGEAL SWAB SPECIMENS.THE PERFORMANCE OF THIS TEST HAS NOT BEEN ESTABLISHED FORPATIENTS WITHOUT SIGNS AND SYMPTOMS OF RESPIRATORYINFECTION.RESULTS FROM THIS TEST MUST BE CORRELATED WITH CLINICALHIST ORY, EPIDEMIOLOGICAL DATA , AND OTHER DATA AVAILABLE TOTHE CLINICIAN EVALUATING THE PATIENT.THE PERFORMANCE OF THE Advanced Digital DesignARRAY RP HAS NOT BEEN ESTABLISHEDIN INDIVIDUALS WHO RECEIVED INFLUENZA VACCINE. RECENTADMINISTRATION OF A NASAL INFLUENZA VACCINE MAY CAUSE AFALSE POSITIVE RESULT FOR INFLUENZA A AND/OR B.NEGATIVE RESULTS SHOULD NOT BE USED THE SOLE BASIS FORDIAGNOSIS, TREATMENT, OR OTHER MANAGEMENT DECISIONS.NEGATIVE RESULTS IN THE SETTING OF A RESPIRATORY ILLNESSMAYBE DUE TO INFECTION WITH PATHOGENS THAT ARE NOT DETECTEDBY THIS TEST OR LOWER RESPIRATORY TRACT INFECTION THAT ISNOT DETECTED BY A NASOPHARYNGEAL SWAB SPECIMEN.RV+EV RNA Nph Ql MADELEINE+non-probe Name Value Range Interpretation Code Description Data Roberta rce(s) Supporting Document(s) ID Date Data Source [id number] 01/05/2020 11:51:00 AM [facility] ED Physician Documentation NAME: LALA SUAZO : 1965 AGE: 54 MR#: [id number] SERVICE DATE: 01/05/[address]: Donovan Bell MD PRIMARY CARE DR: Vanessa Arias MD ROOM#: [facility] (Adult, General) General Chief Complaint: Urogenital Stated Complaint: SIDE PAIN Resident LT, travel outisde home, exposure to hot tubs:: No Time Seen by Provider: 01/05/20 09:45 Source: patient Exam Limitations: no limitations History of Present Illness Initial Comments: 54-year-old white female complaining of sudden onset about 4:00 this morning of left flank pain #2 renal stone in the past. Patient's had nausea and vomiting denies any fever chills. No chest pain no difficulty breathing no cough. No recent travel no history of Covid exposure. Patient has a history of nephrolithiasis in the past Past Medical History Past Medical History: Nursing Past Medical History Has Been Reviewed Allergies/Home Meds Allergies Allergy/AdvReac Type Severity Reaction Status Date / Time Estrogens Allergy Unknown Verified 01/05/20 10:16 sulfacetamide [Sulfacetamide] Allergy Unknown Verified 01/05/20 10:16 Home Medications Medication Instructions Recorded Confirmed Last Taken Type No Known Home Medications 01/05/20 01/05/20 Unknown History Medication list updated and reviewed:: Yes Pain Assessment Pain Location: Left flank Pain Intensity: 6 Pain Scale Used: Numeric Scale Pain Radiation Location: None ER plan Plan of care and ER treatment: An ER treatment plan was discussed with patient and family, Patient encouraged to ask questions about plan and ER treatments and Patient agrees with ER plan of care PMH (from Triage) Patient Medical History PMH Reviewed/Updated as Needed: Yes Female History LMP:: Menopause : No Lactating mother:: No Hx Drug Resistant Infections Hx Other Resistant Infection?: No Isolation: Standard precautions Hx Recent Travel Nurse screening for coronavirus: Recent Travel outside the No country (where) Has patient experienced No coronavirus symptoms Social History Are you in a relationship with/Does anyone hit you, yell/swear at you, steal from you?: No Substance Use Second Hand Smoke Exposure: No Smoking Status: Never smoker Tobacco Use Hx Chewing Tobacco Use: No Vaccination History Hx/Date of Tetanus, Diphtheria Vaccination: Yes Hx/Date of Influenza Vaccination: No H x/Date of Pneumococcal Vaccination: No Immunizations Up to Date: Yes [facility] Social History Does the Patient have a Healthcare Proxy: No Does Patient have a DNR?: No Does Patient have a Living Will?: No Smoking Status: Never smoker ROS Review of Systems Constitutional: Denies fever, chills and sweats Respiratory: Denies cough, sputum and SOB Cardiovascular: Denies chest pain and palpitations Gastrointestinal: Reports nausea, vomiting and diarrhea; Denies abdominal pain, melena, hematochezia and coffee grounds emesis Genitourinary- Female: Denies dysuria and frequency Musculoskeletal: Reports back pain Skin/Breasts: Denies rash Neurologic: Denies weakness, numbness and headache Psychiatric: Reports No Symptoms/Complaints Hematological/Lymphatic: Reports No Symptoms/Complaints Allergic/Immunologic: Reports No Symptoms/Complaints Physical Exam General Physical Exam Narrative: White female in some distress secondary to left flank pain Limitations: no limitations General appearance: alert Head Head exam: Present atraumatic, normocephalic and normal inspection Eye Eye exam: Present normal apperance ENT ENT exam: Present mucous membranes moist Neck Neck exam: Present normal inspection, full ROM and supple Respiratory Respiratory exam: Present normal lung sounds bilaterally; Absent respiratory distress Cardiovascular Cardiovascular Exam: Present regular rate, normal rhythm and no murmur GI/Abdominal GI/Abdominal exam: Present soft; Absent distended, tenderness, guarding, rebound and rigid Extremities Exam Extremities exam: Present normal inspection; Absent pedal edema and calf tenderness Back Exam Back exam: Present normal inspection; Absent CVA tenderness (R) and CVA tenderness (L) Neurological Exam Neurological exam: Present alert and oriented X3 Psychiatric Psychiatric exam: Present normal affect and normal mood Skin Skin exam: Present warm, dry, intact and normal color; Absent rash Vital Signs Vital Signs: Vital Signs 01/05/20 10:04 01/05/20 10:12 Temperature 100.5 F H 100.5 F H Pulse Rate 83 Respiratory Rate 18 Blood Pressure 111/66 O2 Sat by Pulse Oximetry 98 MDM (comprehensive) Lab Data Labs: 01/05/20 10:03 01/05/20 10:03 Laboratory Results Last 24 hours 01/05/20 09:52: Urine Color Yellow, Urine Appearance Cloudy A, Urine pH 5.5, Ur Specific [place] 1.020, Urine Protein 30 mg/dl H, Urine Ketones Trace A, Urine Blood Large H, Urine Nitrite Positive H, Urine Bilirubin Negative, Urine Urobilinogen 1 eu/dl, Ur Leukocyte Esterase Moderate H, Urine RBC 3-5, Urine WBC 8-12 H, Ur Squamous Epith Cells Few, Urine Bacteria Large amount H, Micro UA Comment Microscopic added, Urine Glucose Negative 01/05/20 10:03: WBC 10.1, RBC 4.15 L, Hgb 12.4, Hct 38.5, MCV 92.8, MCH 29.9, MCHC 32.2 L, RDW 13, Plt Count 214, MPV 9.1, Immature Gran % (Auto) 0.3, Neut % (Auto) 93.3 H, Lymph % (Auto) 2.6 L, Avery % (Auto) 1.5 L, Eos % (Auto) 2.1, Baso % (Auto) 0.2 L, Lymph # (Auto) 0.3 L, Abs Immat Gran (auto) 0.0, Add Manual Diff Manual diff added, Total Counted 100, Neutrophils (Manual) 81 H, Absolute Neutrophils 9.4 H, Band Neutrophils 16 H, Lymphocytes (Manual) 2 L, Monocytes (Manual) 1 L, Monocytes # 0.2, Absolute Eosinophils 0.2, Absolute Basophils 0.0, Platelet Estimate Appears normal, RBC Morphology Appears normal 01/05/20 10:03: Sodium 140, Potassium 4.0, Chloride 111 H, Carbon Dioxide 23, Anion Gap 10, BUN 20, Creatinine 1.3 H, GFR Calculation 43, Glucose 120 H, Calcium 8.6, Total Bilirubin 0.7, AST 39 H, ALT 49, Alkaline Phosphatase 83, Serum Total Protein 7.0, Albumin 3.3 Labs reviewed white count normal 16 bands Urinalysis positive UTI creatinine 1.3 Radiology Data Radiology results: report reviewed Radiology impressions: CT report reviewed has obstructing 6 mm stone left side mild hydronephrosis and edema of kidney Medical Decision Making Free Text/Narative:: 54-year-old white female complaining of left flank pain this morning with nausea and vomiting CT scan reveals a 6 mm stone obstructing with edema of the left kidney Urinalysis reveals urinary tract infection White count 10,000 16 bands Patient has temperature of 100.8 Unable to reach her outpatient urologist Call placed to transfer center at [facility] They will call back Spoke to urologist at [facility] patient accepted for transfer to go ED to ED Spoke to ED physician agreed with transfer Plan Visit Medications Administered ED medications:: Medications Generic Name Dose Route Start Last Admin Trade Name Freq PRN Reason Stop Dose Admin Sodium Chloride 1,000 mls @ 200 mls/hr 01/05/20 09:53 01/05/20 10:01 Ns 0.9% IV 200 mls/hr .Q5H GIL Administration Discontinued Medications Generic Name Dose Route Start Last Admin Trade Name Freq PRN Reason Stop Dose Admin Ciprofloxacin/Dextrose 400 mg in 200 mls @ 200 mls/hr 01/05/20 11:50 01/05/20 12:19 Cipro 400mg Piggyback IV 01/05/20 12:49 200 mls/hr ONCE ONE Administration Ketorolac Tromethamine 30 mg 01/05/20 09:53 01/05/20 10:04 Ketorolac Tromethamine 30 Mg/Ml Sdv IVP 01/05/20 09:54 30 mg 1T ONE Administration Ondansetron HCl 4 mg 01/05/20 09:52 01/05/20 10:00 Ondansetron Hcl/Pf 4 Mg/2 Ml Sdv IVP 01/05/20 09:53 4 mg 1T ONE Administration Tamsulosin HCl 0.4 mg 01/05/20 11:21 01/05/20 11:44 Tamsulosin Hcl 0.4 Mg Capsule PO 01/05/20 11:22 0.4 mg ONCE ONE Administration Other Medications: Discontinued: fluocinonide 0.05% (dispense 60 grams - 0.05%) apply to affected areas of trunk and extremities twice a day as needed x 2 weeks Discontinued Reason: Reported during MED REC - M edication is D/C 1 applic TP BID 30 days 1 tube 5RF L30.9 Discharge Plan Admission/Discharge Dx Primary DC Diagnosis: Left flank pain with obstructing stone and hydronephrosis. UTI ED Provider: Donovan Bell ED Status: Transfer Pending Time Seen by Provider: 01/05/20 09:45 Triaged At: 01/05/20 09:35 Condition Condition: Stable Discharge Detail Disposition: Transfer - [facility] Med Rec New Prescriptions: No Action No Known Home Medications RF: 0 Report Signers: <Electronically signed by Donovan Bell MD> Donovan Bell MD 01/05/20 1309 Donovan Bell MD SIGNATURE DA Report Cosigners: D: DIBMI 01/05/20 1151 T: DIBMI 01/05/20 1151 CC: Vanessa Arias MD Name Value Range Interpretation Code Description Data Roberta rce(s) Supporting Document(s) ID Date Data Source [id number] 01/05/2020 10:40:00 AM EST [facility] [address] [place], [place] [id number] [phone] NAME SEX PT STATUS ACCOUNT NUMBER LALA SUAZO [facility] ER [id number] ORDERING PHYSICIAN LOCATION MEDICAL RECORD NO. Donovan Bell MD ER [id number] ATTENDING PHYSICIAN DATE OF DATE OF EXAM/TIME Vanessa Arias MD 1965 01/05/20 / 0952 TYPE / EXAM CT Abd/pel w/o contrast REASON FOR EXAM left flank pain CLINICAL HISTORY: 54 years of age, Female, left flank pain. TECHNIQUE: Multiple noncontrast helical images of the abdomen and pelvis obtained scanning from thehemidiaphragms to the symphysis pubis without the use of intravenous contrast. No oral contrast was administered. Coronal and sagittal reformatted images performed. Evaluation of solid organs and vasculature are limited, due to the lack of intravenous contrast administration. Dose reduction techniques were used including automated exposure control and adjustment of mA and/or KV according to patient size. Radiation dose: CTDI: 12.92 DLP: 681 COMPARISON: 08/21/2010 FINDI NGS: Pulmonary base: The lung bases clear. There is no pleural effusion. Cardiovascular base/vascular: The heart base is normal in size. There is no significant pericardialeffusion. The abdominal aorta is normal in course and caliber. Liver: The unenhanced liver is unremarkable. No definite hepatic masses or lesions are identified. Gallbladder and Biliary System: No intrahepatic or extrahepatic biliary ductal dilatation is present. The gallbladder is unremarkable. Pancreas: Unremarkable. Spleen: Unremarkable. Adrenal: Unremarkable. Kidneys and Ureters: Mild a symmetric enlargement of the left kidney with edema and swelling with moderate perinephric stranding. Obstructive calculus at the left ureteropelvic junction measuring 6 mm associated mild left hydronephrosis. Urinary Bladder: The urinary bladder is underdistended limiting evaluation. Reproductive Organs: The uterus is surgically absent. Gastrointestinal: Evaluation of the gastrointestinal structures is somewhat limited without the useof oral contrast. The stomach is underdistended, but grossly unremarkable. The small bowel is unremarkable. There is no evidence for obstruction. The colon is filled with air and stool is otherwise unremarkable. Appendix: A normal air-filled appendix is identified. Peritoneum/Retroperitoneum: No significant intra- abdominal ascites or pneumoperitoneum is present. Lymphatic: Shotty retroaortic and mesenteric lymph nodes are present, a nonspecific finding. Musculoskeletal: Multilevel degenerative changes of the thoracolumbar spine. IMPRESSION: 6 mm left ureteropelvic junction stone. Mild left hydronephrosis as well as edema and swelling of the left kidney. Dr. Rosenthal discussed findings with Dr. Bell via telephone on 01/05/2020 at 10:44 AM. Reported By Luís Rosenthal DO on 01/05/20 1040 Signed By Luís Rosenthal DO on 01/05/20 1054 Date Time CC: Luís Rosenthal DO; Vanessa Arias MD Techn: BAI Trans Dt/Tm: Trans by: DT Prt Dt/Tm: 0286-6677: Total DLP = 681.00 mGy-cm 9162-5233: Total Radiation Dose = 10.2150 mSv Lifetime Dose: 10.2150 mSv Name Value Range Interpretation Code Description Data Roberta rce(s) Supporting Document(s) ID Date Data Source [id number] 01/05/2020 10:52:00 AM EST [facility] @01/05/20 1036: MANUAL DIFF added. RFLXG = DIFF. @01/05/20 1036: MANUAL DIFF added. RFLXG = DIFF. Name Value Range Interpretation Code Description Data Roberta rce(s) Supporting Document(s) Urea nitrogen [Mass/volume] in Serum or Plasma 20 mg/dL 9-23 N [facility] Sodium [Moles/volume] in Serum or Plasma 140 mmol/L 132-146 N [facility] Potassium [Moles/volume] in Serum or Plasma 4.0 mmol/L 3.5-5.5 N [facility] Chloride [Moles/volume] in Serum or Plasma 111 mmol/L 99-109 Above high normal [facility] Carbon dioxide, total [Moles/volume] in Serum or Plasma 23 mmol/L 20 -31 N [facility] Anion gap in Serum or Plasma 10 mmol/L 8-16 N [facility] Glucose [Mass/volume] in Serum or Plasma 120 mg/dL 74-106 Above high normal [facility] Creatinine 1.3 mg/dL 0.5-1.1 Above high normal [facility] Glomerular filtration rate/1.73 sq M.pre dicted [Volume Rate/Area] in Serum or Plasma 43 ml/min ABOVE 60 [facility] ital Alanine aminotransferase [Enzymatic acti vity/volume] in Serum or Plasma by With P-5'-P 49 U/L 10-49 N [facility] ital Aspartate aminotransferase [Enzymatic ac tivity/volume] in Serum or Plasma by With P-5'-P 39 U/L 0-33 Above high normal [facility] Alkaline phosphatase [Enzymatic activity/volume] in Serum or Plasma 83 U/L 45-129 N [facility] Calcium [Mass/volume] in Serum or Plasma 8.6 mg/dL 8.5-10.1 N [facility] Bilirubin.total [Mass/volume] in Serum or Plasma 0.7 mg/dL 0.3-1.2 N [facility] Albumin [Mass/volume] in Serum or Plasma by Bromocresol purple (BCP) dye binding method 3.3 g/dL 3.2-4.8 N [facility] ital Protein [Mass/volume] in Serum or Plasma 7.0 g/dL 5.7-8.2 N [facility] ID Date Data Source [id number] 01/05/2020 11:02:00 AM EST [facility] @01/05/20 1036: MANUAL DIFF added. RFLXG = DIFF. @01/05/20 1036: MANUAL DIFF added. RFLXG = DIFF. Name Value Range Interpretation Code Description Data Roberta rce(s) Supporting Document(s) Leukocytes [#/volume] in Blood by Automated count 10.1 10*3/uL 4.45-1 0.71 N [facility] Erythrocytes [#/volume] in Blood by Automated count 4.15 10*6/uL 4.20-5.40 Below low normal [facility] Hemoglobin [Moles/volume] in Blood 12.4 g/dL 10.7-15.4 N [facility] Hematocrit [Volume Fraction] of Blood by Automated count 38.5 % 3 7-47 N [facility] Erythrocyte mean corpuscular volume [Ent itic volume] in Cord blood by Automated count 92.8 fL 80-96 N [facility] ital Erythrocyte mean corpuscular hemoglobin [Entitic mass] by Automated count 29.9 pg 27-31 [facility] E[facility]throcyte mean corpuscular hemoglobin concentration [Mass/volume] in Cord blood 32.2 g/dL 33-37 Below low normal [facility] Erythrocyte distribution width [Entitic volume] by Automated count 13 % 11-15 N [facility] Platelets [#/volume] in Blood by Automated count 214 10*3/uL 130-472 N [facility] Platelet mean volume [Entitic volume] in Blood 9.1 fL 9.1-13.1 N [facility] Neutrophils/100 leukocytes in Blood by Automated count 93.3 % 41-77 Above high normal [facility] @PERFORM SLIDE SCAN IF NOT AGREE MAN DIF F@DOCUMENT SLIDE SCAN COMMENT Neutrophils [#/volume] in Blood by Automated count 9.4 U 1.7-7.6 Above high normal [facility] Lymphocytes/100 leukocytes in Blood by Automated count 2.6 % 14-46 Below low normal [facility] Lymphocytes [#/volume] in Blood by Automated count 0.3 U 0.6-4.6 Below low normal [facility] Monocytes/100 leukocytes in Blood by Automated count 1.5 % 4-12 Below low normal [facility] Monocytes [#/volume] in Blood by Automated count 0.2 U 0.2-1.2 N [facility] Eosinophils/100 leukocytes in Blood by Automated count 2.1 % 0-7 N [facility] Eosinophils [#/volume] in Blood by Automated count 0.2 U 0.0-0.5 N [facility] Basophils/100 leukocytes in Blood by Automated count 0.2 % 0.4-1.3 Below low normal [facility] Basophils [#/volume] in Blood by Automated count 0.0 U 0.0-0.2 N [facility] NUCLEATED RED BLOOD CELL 0 % [facility] NUCLEATED RED BLOOD CELL# 0 U [facility] Immature granulocytes [Presence] in Blood by Automated count 0-2 N [facility] Immature granulocytes [#/volume] in Blood by Automated count 0.0 U 0-0.1 N [facility] Manual Differential panel - Blood Manual Diff Added [facility] ID Date Data Source [id number] 01/05/2020 11:02:00 AM EST [facility] @01/05/20 1036: MANUAL DIFF added. RFLXG = DIFF. @01/05/20 1036: MANUAL DIFF added. RFLXG = DIFF. Name Value Range Interpretation Code Description Data Roberta rce(s) Supporting Document(s) Cells counted [#] 100 [facility] Neutrophils [#/volume] in Blood by Manual count 81 % 41-77 Above high normal [facility] Band form neutrophils [#/volume] in Blood by Manual count 16 % 0-5 Above high normal [facility] @Are you sure? Please be sure this value is correct Lymphocytes [#/volume] in Blood by Manual count 2 % 14-46 Below low normal [facility] Monocytes [#/volume] in Blood by Manual count 1 % 4-12 B elow low normal [facility] Platelets [#/volume] in Blood by Estimate APPEARS NORMAL NORMAL [facility] Morphology [Interpretation] in Blood Narrative APPEARS NORMAL NORMAL [facility] ID Date Data Source [id number] 01/05/2020 11:12:00 AM EST [facility] @01/05/20 1106: UA W/ MICRO added. RFLXG = UMIC.Method of Collection:: Voided @01/05/20 1106: UA W/ MICRO added. RFLXG = UMIC.Method of Collection:: Voided Name Value Range Interpretation Code Description Data Roberta rce(s) Supporting Document(s) Color of Urine [facility] Appearance of Urine CLEAR Abnormal (applies to non-nu meric results) [facility] pH of Urine by Test strip 5.5 5-8 [facility] Specific gravity of Urine by Refractometry 1.020 1.005-1.030 [facility] Leukocyte esterase [Presence] in Urine by Test strip NEGATIVE Above high normal [facility] @DO MICRO!!!! Nitrite [Presence] in Urine by Test strip NEGATIVE Above high normal [facility] @DO MICRO!!!! Protein [Presence] in Urine by Test strip NEGATIVE Above high normal [facility] @DO MICRO!!!! Glucose [Mass/volume] in Urine by Automated test strip NEGATIVE NEG ATIVE [facility] Ketones [Presence] in Urine by Test strip NEGATI VE Abnormal (applies to non- numeric results) [facility] Urobilinogen [Presence] in Urine 0.2-1 EU/dl [facility] Bilirubin.total [Presence] in Urine by Automated test strip NEGATIVE [facility] Erythrocytes [#/volume] in Urine by Test strip LARGE NEGATIV E Above high normal [facility] @DO MICRO!!!! URINE MICROSCOPIC ADDED Microscopic Added [facility] ID Date Data Source [id number] 01/05/2020 11:12:00 AM EST [facility] @01/05/20 1106: UA W/ MICRO added. RFLXG = UMIC.Method of Collection:: Voided @01/05/20 1106: UA W/ MICRO added. RFLXG = UMIC.Method of Collection:: Voided Name Value Range Interpretation Code Description Data Roberta rce(s) Supporting Document(s) Erythrocytes [#/volume] in Urine by Manual count 3-5 /hpf 0-5 [facility] Leukocytes [#/volume] in Urine by Manual count 8-12 /hpf 0-5 Above high normal [facility] Cells [Type] in Urine sediment by Light microscopy [facility] Bacteria [Presence] in Urine sediment by Light microscopy NEGATIVE Above high normal [facility] ID Date Data Source [id number] 01/05/2020 12:00:00 AM [facility] Name Value Range Interpretation Code Description Data Roberta rce(s) Supporting Document(s) SARS-CoV2 Rapid PCR [facility] This lab was ordered by [facility] and reported by [facility]. Procedure Social History Code Duration Value Status Description Data Source(s ) Smoking 12/13/2020 12:00:00 AM EDT Patient is a former smoker completed Patient is a former smoker [facility] ([facility], [facility]) 09/19/2020 07:35:00 AM EDT Never smoker completed Never s [facility] Smoking 09/19/2020 07:35:00 AM EDT Never smoker completed Never s [facility] Smoking 02/05/2020 12:00:00 AM EST Former Smoker completed Former Smoker eCW1 ([facility]) Smoking 02/05/2020 12:00:00 AM EST Former Smoker completed Former Smoker eCW1 ([facility]) Smoking 02/05/2020 12:00:00 AM EST Former Smoker completed Former Smoker eCW1 ([facility]) Smoking 01/08/2020 12:00:00 AM EST Former Smoker completed Former Smoker eCW1 ([facility]) Smoking 01/08/2020 12:00:00 AM EST Former Smoker completed Former Smoker eCW1 ([facility]) Smoking 01/08/2020 12:00:00 AM EST Former Smoker completed Former Smoker eCW1 ([facility]) 01/05/2020 11:52:48 AM EST Never smoker completed Never [facility] Smoking 01/05/2020 11:52:00 AM EST Never smoker completed Never [facility] Vital Signs ID Date Data Source UNK Name Value Range Interpretation Code Description Data Source(s) Body height 65.5 [in_i] 65.5 [in_i] MEDENT ([facility], [facility]) 5'5.50" Body mass index (BMI) [Ratio] 31.5 kg/m2 31.5 k g/m2 MEDENT ([facility], [facility]) Systolic blood pressure 109 mm[Hg] 109 mm[Hg] M EDENT ([facility] [place], [facility]) Diastolic blood pressure 78 mm[Hg] 78 mm[Hg] MEDENT ([facility] [place], [facility]) Heart rate 78 /min 78 /min MEDENT ([facility] [place], [facility]) Respiratory rate 16 /min 16 /min MEDENT ( [facility] [place], [facility]) Oxygen saturation in Arterial blood by Pulse oximetry 97 % 97 % MEDENT ([facility], [facility]) Body temperature 98.4 [degF] 98.4 [degF] MEDENT ([facility] [place], [facility]) Body weight 192.00 [lb_av] 192.00 [lb_av] MEDEN T ([facility], [facility]) Body weight 201 [lb_av] 201 [lb_av] eCW1 ([facility]) Body height 65 [in_i] 65 [in_i] eCW1 ([facility]) Body mass index (BMI) [Ratio] 33.44 kg/m2 33.44 kg/m2 eCW1 ([facility]) Heart rate 62 /min 62 /min eCW1 ([facility]) Respiratory rate 18 /min 18 /min eCW1 ([facility]) Body temperature 97.0 [degF] 97.0 [degF] eCW1 ( [facility]) Systolic blood pressure 118 mm[Hg] 118 mm[Hg] e CW1 ([facility]) Diastolic blood pressure 82 mm[Hg] 82 mm[Hg] eCW1 ([facility]) Body weight 205.6 [lb_av] 205.6 [lb_av] eCW1 ([facility]) Body height 65 [in_i] 65 [in_i] eCW1 ([facility]) Body mass index (BMI) [Ratio] 34.21 kg/m2 34.21 kg/m2 eCW1 ([facility]) Heart rate 73 /min 73 /min eCW1 ([facility]) Respiratory rate 18 /min 18 /min eCW1 ([facility]) Body temperature 97.3 [degF] 97.3 [degF] eCW1 ( [facility]) Systolic blood pressure 145 mm[Hg] 145 mm[Hg] e CW1 ([facility]) Diastolic blood pressure 87 mm[Hg] 87 mm[Hg] eCW1 ([facility]) Systolic blood pressure 120 mm[Hg] 120 mm[Hg] M EDENT ([facility], [facility]) Diastolic blood pressure 86 mm[Hg] 86 mm[Hg] MEDENT ([facility] [place], [facility]) Heart rate 80 /min 80 /min MEDENT ([facility], [facility]) Respiratory rate 16 /min 16 /min MEDENT ( [facility] [place], [facility]) Oxygen saturation in Arterial blood by Pulse oximetry 99 % 99 % MEDENT ([facility], [facility]) Body temperature 98.7 [degF] 98.7 [degF] MEDENT ([facility], [facility]) Body weight 200.00 [lb_av] 200.00 [lb_av] MEDEN T ([facility] [place], [facility]) Body height 65.5 [in_i] 65.5 [in_i] MEDENT ([facility], [facility]) 5'5.50" Body mass index (BMI) [Ratio] 32.8 kg/m2 32.8 k g/m2 MEDENT ([facility], [facility]) ID Date Data Source [id number] 01/06/2020 12:25:23 PM EST [facility] Name Value Range Interpretation Code Description Data Source(s) TRANSFER FROM [facility] Patient Treatment Plan of Care Planned Activity Planned Date Details Description Data Source (s) doxycycline hyclate 100 MG Oral Capsule [Vibramycin] 12:00:00 AM EST eCW1 ([facility]) doxycycline hyclate 100 MG Oral Capsule [Vibramycin] 12:00:00 AM EST eCW1 ([facility]) doxycycline hyclate 100 MG Oral Capsule [Vibramycin] 12:00:00 AM EST eCW1 ([facility])
--- OUTSIDE RECORDS SUMMARY | 2020-12-16 11:42 | CCD | Continuity of Care Document ---
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 Role Phone Vanessa Arias MD [facility] [phone] Problems Description No Information Available Social History Type Date Description Comments Sex Unknown ETOH Use Occasionally consumes alcohol Tobacco Use Start: Unknown End: Unknown Patient is a former smoker 1984 Smoking Status Reviewed: 12/13/20 Patient is a former smoker 19 85 Allergies and adverse reactions Active Allergies Criticality Reaction | Severity Comments Date Sulfa Unable to assess criticality Urticaria 09/17/2013 Magic Mouthwash Unable to assess criticality hives 12/17/2013 Medications Description No Active Medications Immunizations Description No Information Available Vital Signs Date Vital Result Comment 12/13/2020 10:39am BP Systolic 109 mmHg BP Diastolic 78 mmHg Heart Rate 78 /min Respiratory Rate 16 /min O2 % BldC Oximetry 97 % Body Temperature 98.4 F Weight 192.00 lb Height 65.5 inches 5'5.50" BMI (Body Mass Index) 31.5 kg/m2 Pain Level 5 01/02/2020 2:29pm BP Systolic 120 mmHg BP Diastolic 86 mmHg Heart Rate 80 /min Respiratory Rate 16 /min O2 % BldC Oximetry 99 % Body Temperature 98.7 F Weight 200.00 lb Height 65.5 inches 5'5.50" BMI (Body Mass Index) 32.8 kg/m2 Pain Level 2 Results Description No Information Available Procedures Date Code Description Status 12/13/2020 25966 Office/Outpatient Established Lo w MDM 20-29 Min Completed Medical Devices Description No Information Available Encounters Type Date Location Provider Dx Diagnosis Office Visit 12/13/2020 10:20a Main Office DIANNA Maldonado J06 .9 Acute upper respiratory infection, unspecified U07.1 Covid-19 Assessments Date Code Description Provider 12/13/2020 J06.9 Acute upper respiratory infectio n, unspecified DIANNA Maldonado 12/13/2020 U07.1 Covid-19 DIANNA Joy Plan of Treatment No Information Available Functional Status Description No Information Available Mental Status Description No Information Available Referrals Description No Information Available
--- OUTSIDE RECORDS SUMMARY | 2020-12-16 11:42 | CCD | Continuity of Care Document ---
Author Author Lala GARIBAY Organization Unknown Address [address] [place] [address] [place] [address] Phone [phone] Care Team Providers Care Graphic Design Assistant Name Role Phone Vanessa Arias MD [facility] [phone] Problems Description No Information Available Social History [...] Available Procedures Date Code Description Status 12/13/2020 93715 Office/Outpatient Established Lo w MDM 20-29 Min [...]
--- NOTE | 2020-12-16 12:40 | REP ---
INDICATION: Coronavirus workup. COMPARISON: None. TECHNIQUE: Single portable AP view of the chest was performed. FINDINGS: There is no acute infiltrate or pulmonary edema. Lungs are clear. The heart is not significantly enlarged. The mediastinal silhouette is unremarkable. The visualized osseous structures are intact. IMPRESSION: No acute pulmonary disease. <Electronically signed by Jose Smith > 12/16/20 [id number]
[2020-12-16 12:57] LABS: BASO % 0.3 % (0.0-1.0); HEMATOCRIT 40.1 % (36.0-47.0); HEMOGLOBIN 13.2 g/dl (12.0-15.5); LYMPH # 1.1 10^3/uL (1.5-5.0); LYMPH % 30.5 % (24.0-44.0); MEAN CORPUSCULAR HEMOGLOBIN 30.7 pg (27.0-33.0); MEAN CORPUSCULAR HGB CONC 32.9 g/dl (32.0-36.5); MEAN CORPUSCULAR VOLUME 93.3 fl (80.0-96.0); MONO # 0.4 10^3/uL (0.0-0.8); MONO % 11.2 % (2.0-8.0); NEUTROPHILS % 57.7 % (36.0-66.0); PLATELET COUNT, AUTOMATED 273 10^3/uL (150-450); WHITE BLOOD COUNT 3.5 10^3/uL (4.0-10.0)
--- OUTSIDE RECORDS SUMMARY | 2020-12-16 13:26 | CCD ---
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 If you continue you may have access to information: Regarding HIV / AIDS; Provided by facilities licensed or operated by the [facility] Office of Mental Health; or Provided by the [facility] Office for People With Developmental Disabilities. If such information is present, then the following [facility] mandated warning applies: This information has been [...] law may result in a fine or care home sentence or both. A general authorization for the release of medical or other information is NOT sufficient authorization for further disc losure. Allergies and Adverse Reactions Type Description Substance Reaction Status Data Source(s ) Drug allergy sulfacetamide sulfacetamide [facility] Drug allergy Estrogens Estrogens [facility] Family History Family Member Name Family Member Gender Family Member Status Date o f Status Description Data Source(s) Unknown Unknown Problem [facility] ([facility] mother Encounters Encounter Providers Location Date Indications Data Source(s ) Outpatient Attender: DONOVAN florian 12/13/2020 10:20:00 AM EDT [facility] ([facility]) Outpatient Attender: Jermaine Raoerrer: Vanessa Sheets 11/01/2020 09:01:00 AM EDT - 11/01/2020 09:49:00 AM EDT [facility] Outpatient Attender: Vanessa Arias MD 10/04/2020 01:36:0 0 PM EDT SCREENING [facility] SCREENING Outpatient Attender: Vanessa Arias MDReferrer: Vanessa hodgson MD 10/04/2020 12:54:00 PM EDT - 10/04/2020 01:28:00 PM EDT [facility] Unknown [address] [facility] [address] [address] 02/19/2020 12:00:00 AM EST eCW1 ([facility]) [place]op visit [address] [facility] [address] [place] [address] 02/05/2020 12:00:00 AM EST eCW1 ([facility]) [place] [address] [facility] [address] [place] [address] 01/11/2020 12:00:00 AM EST eCW1 ([facility]) [place] [address] [facility] [facility] [address] [place] [address] 01/10/2020 12:00:00 AM EST eCW1 ([facility]) Outpatient [address] [facility] [place] [address] 01/08/2020 12:00:00 AM EST eCW1 ([facility]) Unknown [address] [facility] [address] [place] [address] 01/08/2020 12:00:00 AM EST eCW1 ([facility]) Emergency Referrer: Donovan Bell MD 12:41:00 PM EST - 01/06/2020 12:25:19 PM EST 6 ml stone on left side, uti and fever [facility] 6 ml stone on left side, uti and fever Emergency Attender: Donovan Bell MD 09:35:00 AM EST - 01/05/2020 02:37:[address] [facility] SIDE PAIN Patient discharged. Outpatient Attender: THIEN solano 01/02/2020 01:15:00 PM EST [facility] ([facility]) Medications Medication Brand Name Start Date Product Form Dose Route Admi nistrative Instructions Pharmacy Instructions Status Indications Reaction Description Data Source(s) doxycycline hyclate 100 MG Oral Capsule [Vibramycin] V ibramycin 100 MG Vibramycin 100 MG 01/08/2020 12:00:00 AM EST 1.0 {capsule} active Vibramycin 100 MG eCW1 ([facility]) doxycycline hyclate 100 MG Oral Capsule [Vibramycin] V ibramycin 100 MG Vibramycin 100 MG 01/08/2020 12:00:00 AM EST 1.0 {capsule} suspended Vibramycin 100 MG eCW1 ([facility]) doxycycline hyclate 100 MG Oral Capsule [Vibramycin] V ibramycin 100 MG Vibramycin 100 MG 01/08/2020 12:00:00 AM EST 1.0 {capsule} suspended Vibramycin 100 MG eCW1 ([facility]) doxycycline hyclate 100 MG Oral Capsule [Vibramycin] V ibramycin 100 MG Vibramycin 100 MG 01/08/2020 12:00:00 AM EST 1.0 {capsule} suspended Vibramycin 100 MG eCW1 ([facility]) doxycycline hyclate 100 MG Oral Capsule [Vibramycin] V ibramycin 100 MG Vibramycin 100 MG 01/08/2020 12:00:00 AM EST 1.0 {capsule} active Vibramycin 100 MG eCW1 ([facility]) doxycycline hyclate 100 MG Oral Capsule [Vibramycin] V ibramycin 100 MG Vibramycin 100 MG 01/08/2020 12:00:00 AM EST 1.0 {capsule} active Vibramycin 100 MG eCW1 ([facility]) Formoso (No Known Home Medications) 01/05/2020 10:17:13 AM EST active [facility] Fluocinonide 0.0005 MG/MG Topical Ointment Fluocinonide 09/25/2019 02:45:43 PM EDT 1 APPLIC completed [facility] Insurance Providers Payer name Policy type / Coverage type Policy ID Covered constitution party ID Covered constitution party's relationship to pacheco Policy [place] Plan Information BCBS [facility] Other [id number] Se [id number] BCBS [facility] Other [id number] Se lf [id number] [employer] [facility] Other [id number] Se lf [id number] [employer] [facility] Other [id number] Se lf [id number] [employer] [facility] Other [id number] Se lf [id number] [employer] [facility] Other [id number] Se lf [id number] [employer] [facility] Other [id number] Se lf [id number] [employer] [facility] Other [id number] Se lf [id number] [employer] [facility] Other [id number] Se lf [id number] [employer] [facility] Other [id number] Se lf [id number] [facility] [id number] SP [id number] BC [place] [facility] FEDERAL [id number] [facility] O [id number] S [id number] [facility] [id number] SP [id number] [employer] [id number] SP [id number] [facility] [id number] SP [id number] [facility]BS [place] [facility]/307 [id number] SP [id number] [employer] [id number] Self [id number] [facility] [id number] SP [id number] [employer] [id number] Self [id number] [facility] [id number] SP [id number] Problems, Conditions, and Diagnoses Code Display Name Description Problem Type Effective Dates Data Source(s) 6 ml stone on left side, uti and fever 6 ml ston e on left side, uti and fever Diagnosis 01/06/2020 12:25:23 PM [facility] N20.0 Kidney stone Renal calculus, left Problem 01/08/2020 12 :00:00 AM EST eCW1 ([facility]) Surgeries/Procedures Procedure Description Date Indications Data Source(s) OFFICE OUTPATIENT VISIT 15 MINUTES 12/13/2020 12:00:00 AM [facility] CT Abd/pel w/o contrast 01/05/2020 09:52:00 AM [facility] CT Abd/pel w/o contrast 01/05/2020 09:52:00 AM [facility] Nucleic acid assay (procedure) 01/05/2020 12:00:00 AM [facility] Nucleic acid assay (procedure) 01/05/2020 12:00:00 AM [facility] Results ID Date Data Source [id number] 11/01/2020 09:03:00 AM EDT [facility] Name: LALA SUAZO : 1965 Age: 55 MR#: [id number] Admit Date: 11/01/20 Provider: Jermaine Chun MD [...] one. No family history of colon cancer. Valve Lapper Required: No Accompanied by: Self / Same [...] history of colon cancer or colon polyps. [facility] Medical History Renal calculus Surgical History (Updated [...] the past. Coding Level of Care Code 69350 New Pt Intermediate Comp Exam Expanded Problem [...] rce(s) Supporting Document(s) ID Date Data Source [id number] 10/04/2020 09:42:00 PM EDT [facility] [address] [place] [address] [phone] NAME SEX PT STATUS ACCOUNT NUMBER LALA SUAZO REG REF [id number] ORDERING PHYSICIAN LOCATION MEDICAL RECORD NO. Vanessa Arias MD MAMMO [id number] ATTENDING PHYSICIAN DATE OF DATE OF EXAM/TIME [...] rce(s) Supporting Document(s) ID Date Data Source [id number] 10/04/2020 12:55:00 PM EDT [facility] Patient Name: LALA SUAZO : 1965 Sex: F Pt Unit #: [id number] Location[facility] Provider: Visit Date/Time: 10/04/20 Primary Insurance: P [...] today - she is doing really well Valve Lapper Required: No Accompanied by: Self / Same [...] no acute distress Nutritional Appearance: well nourished [facility] Head: normal to inspection, normocephalic and [...] N20.0 - Calculus of kidney SNOMED Code(s): 25509802 Category: Medical (3) Encounter for routine adult [...] of colon Coding Level of Care Code 50636 Well 40- 64 (Est) Diagnoses Encounter for annual health examination Z00.00 Renal calculus N20.0 Encounter for routine adult medical exam with abnormal findings Z00.01 <Electronically signed by Vanessa Arias MD> 10/04/20 1607 Name Value Range Interpretation Code Description Data Roberta rce(s) Supporting Document(s) ID Date Data Source URINE CULTURE 01/09/2020 12:00:00 AM EST eCW1 ([facility]) Name Value Range Interpretation Code Description Data Roberta rce(s) Supporting Document(s) Laboratory studies (set) URINE CULTU RE eCW1 ([facility]) ID Date Data Source Basic Metabolic Profile (BMP) 01/08/2020 12:00:00 AM EST eCW 1 ([facility]) Name Value Range Interpretation Code Description Data Roberta rce(s) Supporting Document(s) 57.5 >51 GLOMERULAR FILTRATION RATE eCW 1 ([facility]) 75 70-100 GLUCOSE, FASTING eCW1 ([facility]) 11 7-18 BLOOD UREA NITROGEN eCW1 ([facility]) 1.06 0.55-1.30 CREATININE FOR GFR eCW1 ([facility]) 25 21-32 CARBON DIOXIDE LEVEL eCW1 ([facility]) 108 98-107 CHLORIDE LEVEL eCW1 ([facility]) 4.0 3.5-5.1 POTASSIUM SERUM eCW1 ([facility]) 141 136-145 SODIUM LEVEL eCW1 ([facility]) 8.8 8.5-10.1 CALCIUM LEVEL eCW1 ([facility]) ID Date Data Source CBC - Complete Blood Count 01/08/2020 12:00:00 AM EST eCW1 ( [facility]) Name Value Range Interpretation Code Description Data Roberta rce(s) Supporting Document(s) 3.94 4.00-5.40 RED BLOOD COUNT eCW1 ([facility]) 9.7 4.0-10.0 WHITE BLOOD COUNT eCW1 ([facility]) 11.5 12.0-15.5 HEMOGLOBIN eCW1 ([facility]) 37.0 36.0-47.0 HEMATOCRIT eCW1 ([facility]) 31.1 32.0-36.5 MEAN CORPUSCULAR HGB CONC eCW1 ([facility]) 29.2 27.0-33.0 MEAN CORPUSCULAR HEMOGLOB IN eCW1 ([facility]) 93.9 80.0-96.0 MEAN CORPUSCULAR VOLUME e CW1 ([facility]) 282 150-450 PLATELET COUNT, AUTOMATED eCW1 ([facility]) 12.3 11.5-14.5 RED CELL DISTRIBUTION WID TH eCW1 ([facility]) ID Date Data Source [id number] 01/05/2020 01:28:00 PM [facility] THIS RP PANEL TESTS FOR SARS-CoV -2,(COVID-19)FilmArray Respiratory Panel is a Multiplexed NAAT-PCR testNORMAL VALUE FOR ALL 20 PATHOGENS IS "NOT DETECTED".The FilmArray RP panel detects Influenza A H1,H3 fww2673 H1 viruses,Influenza B virus, Respiratory syncytialvirus, Human [...] CLINICIAN EVALUATING THE PATIENT.THE PERFORMANCE OF THE [place] [employer]isionARRAY RP HAS NOT BEEN ESTABLISHEDIN INDIVIDUALS WHO [...] rce(s) Supporting Document(s) ID Date Data Source [id number] 01/05/2020 11:51:00 AM [facility] ED Physician Documentation NAME: LALA SUAZO : 1965 AGE: 54 MR#: [id number] SERVICE DATE: 01/05/[address]: Donovan Bell MD PRIMARY CARE DR: Vanessa Arias MD ROOM#: [facility] (Adult, General) General Chief Complaint: Urogenital Stated [...] Vaccination: No Immunizations Up to Date: Yes [facility] Social History Does the Patient have a [...] Cloudy A, Urine pH 5.5, Ur Specific [place] 1.020, Urine Protein 30 mg/dl H, Urine [...] 93.3 H, Lymph % (Auto) 2.6 L, Treasure % (Auto) 1.5 L, Eos % (Auto) [...] urologist Call placed to transfer center at [facility] They will call back Spoke to urologist at [facility] patient accepted for transfer to go ED [...] Condition: Stable Discharge Detail Disposition: Transfer - [facility] Med Rec New Prescriptions: No Action No Known Home Medications RF: 0 Report Signers: <Electronically signed by Donovan Bell MD> Donovan Bell MD 01/05/20 1309 Donovan Bell MD SIGNATURE DA Report Cosigners: D: DIBMI 01/05/20 1151 T: DIBMI 01/05/20 1151 CC: Vanessa Arias MD Name Value Range Interpretation Code Description Data Roberta rce(s) Supporting Document(s) ID Date Data Source [id number] 01/05/2020 10:40:00 AM EST [facility] [address] [place], [place] [id number] [phone] NAME SEX PT STATUS ACCOUNT NUMBER LALA SUAZO [facility] ER [id number] ORDERING PHYSICIAN LOCATION MEDICAL RECORD NO. Donovan Bell MD ER [id number] ATTENDING PHYSICIAN DATE OF DATE OF EXAM/TIME [...] Trans Dt/Tm: Trans by: DT Prt Dt/Tm: 3253-0936: Total DLP = 681.00 mGy-cm 0937-5253: Total Radiation Dose = 10.2150 mSv Lifetime Dose: 10.2150 mSv Name Value Range Interpretation Code Description Data Roberta rce(s) Supporting Document(s) ID Date Data Source [id number] 01/05/2020 10:52:00 AM EST [facility] @01/05/20 1036: MANUAL DIFF added. RFLXG = DIFF. @01/05/20 1036: MANUAL DIFF added. RFLXG = DIFF. Name Value Range Interpretation Code Description Data Roberta rce(s) Supporting Document(s) Urea nitrogen [Mass/volume] in Serum or Plasma 20 mg/dL 9-23 N [facility] Sodium [Moles/volume] in Serum or Plasma 140 mmol/L 132-146 N [facility] Potassium [Moles/volume] in Serum or Plasma 4.0 mmol/L 3.5-5.5 N [facility] Chloride [Moles/volume] in Serum or Plasma 111 mmol/L 99-109 Above high normal [facility] Carbon dioxide, total [Moles/volume] in Serum or Plasma 23 mmol/L 20 -31 N [facility] Anion gap in Serum or Plasma 10 mmol/L 8-16 N [facility] Glucose [Mass/volume] in Serum or Plasma 120 mg/dL 74-106 Above high normal [facility] Creatinine 1.3 mg/dL 0.5-1.1 Above high normal [facility] Glomerular filtration rate/1.73 sq M.pre dicted [Volume Rate/Area] in Serum or Plasma 43 ml/min ABOVE 60 [facility] ital Alanine aminotransferase [Enzymatic acti vity/volume] in Serum or Plasma by With P-5'-P 49 U/L 10-49 N [facility] ital Aspartate aminotransferase [Enzymatic ac tivity/volume] in Serum or Plasma by With P-5'-P 39 U/L 0-33 Above high normal [facility] Alkaline phosphatase [Enzymatic activity/volume] in Serum or Plasma 83 U/L 45-129 N [facility] Calcium [Mass/volume] in Serum or Plasma 8.6 mg/dL 8.5-10.1 N [facility] Bilirubin.total [Mass/volume] in Serum or Plasma 0.7 mg/dL 0.3-1.2 N [facility] Albumin [Mass/volume] in Serum or Plasma by Bromocresol purple (BCP) dye binding method 3.3 g/dL 3.2-4.8 N [facility] ital Protein [Mass/volume] in Serum or Plasma 7.0 g/dL 5.7-8.2 N [facility] ID Date Data Source [id number] 01/05/2020 11:02:00 AM EST [facility] @01/05/20 1036: MANUAL DIFF added. RFLXG = DIFF. @01/05/20 1036: MANUAL DIFF added. RFLXG = DIFF. Name Value Range Interpretation Code Description Data Roberta rce(s) Supporting Document(s) Leukocytes [#/volume] in Blood by Automated count 10.1 10*3/uL 4.45-1 0.71 N [facility] Erythrocytes [#/volume] in Blood by Automated count 4.15 10*6/uL 4.20-5.40 Below low normal [facility] Hemoglobin [Moles/volume] in Blood 12.4 g/dL 10.7-15.4 N [facility] Hematocrit [Volume Fraction] of Blood by Automated count 38.5 % 3 7-47 N [facility] Erythrocyte mean corpuscular volume [Ent itic volume] in Cord blood by Automated count 92.8 fL 80-96 N [facility] ital Erythrocyte mean corpuscular hemoglobin [Entitic mass] by Automated count 29.9 pg 27-31 [facility] E[facility]throcyte mean corpuscular hemoglobin concentration [Mass/volume] in Cord blood 32.2 g/dL 33-37 Below low normal [facility] Erythrocyte distribution width [Entitic volume] by Automated count 13 % 11-15 N [facility] Platelets [#/volume] in Blood by Automated count 214 10*3/uL 130-472 N [facility] Platelet mean volume [Entitic volume] in Blood 9.1 fL 9.1-13.1 N [facility] Neutrophils/100 leukocytes in Blood by Automated count 93.3 % 41-77 Above high normal [facility] @PERFORM SLIDE SCAN IF NOT AGREE MAN DIF F@DOCUMENT SLIDE SCAN COMMENT Neutrophils [#/volume] in Blood by Automated count 9.4 U 1.7-7.6 Above high normal [facility] Lymphocytes/100 leukocytes in Blood by Automated count 2.6 % 14-46 Below low normal [facility] Lymphocytes [#/volume] in Blood by Automated count 0.3 U 0.6-4.6 Below low normal [facility] Monocytes/100 leukocytes in Blood by Automated count 1.5 % 4-12 Below low normal [facility] Monocytes [#/volume] in Blood by Automated count 0.2 U 0.2-1.2 N [facility] Eosinophils/100 leukocytes in Blood by Automated count 2.1 % 0-7 N [facility] Eosinophils [#/volume] in Blood by Automated count 0.2 U 0.0-0.5 N [facility] Basophils/100 leukocytes in Blood by Automated count 0.2 % 0.4-1.3 Below low normal [facility] Basophils [#/volume] in Blood by Automated count 0.0 U 0.0-0.2 N [facility] NUCLEATED RED BLOOD CELL 0 % [facility] NUCLEATED RED BLOOD CELL# 0 U [facility] Immature granulocytes [Presence] in Blood by Automated count 0-2 N [facility] Immature granulocytes [#/volume] in Blood by Automated count 0.0 U 0-0.1 N [facility] Manual Differential panel - Blood Manual Diff Added [facility] ID Date Data Source [id number] 01/05/2020 11:02:00 AM EST [facility] @01/05/20 1036: MANUAL DIFF added. RFLXG = DIFF. @01/05/20 1036: MANUAL DIFF added. RFLXG = DIFF. Name Value Range Interpretation Code Description Data Roberta rce(s) Supporting Document(s) Cells counted [#] 100 [facility] Neutrophils [#/volume] in Blood by Manual count 81 % 41-77 Above high normal [facility] Band form neutrophils [#/volume] in Blood by Manual count 16 % 0-5 Above high normal [facility] @Are you sure? Please be sure this value is correct Lymphocytes [#/volume] in Blood by Manual count 2 % 14-46 Below low normal [facility] Monocytes [#/volume] in Blood by Manual count 1 % 4-12 B elow low normal [facility] Platelets [#/volume] in Blood by Estimate APPEARS NORMAL NORMAL [facility] Morphology [Interpretation] in Blood Narrative APPEARS NORMAL NORMAL [facility] ID Date Data Source [id number] 01/05/2020 11:12:00 AM EST [facility] @01/05/20 1106: UA W/ MICRO added. RFLXG = UMIC.Method of Collection:: Voided @01/05/20 1106: UA W/ MICRO added. RFLXG = UMIC.Method of Collection:: Voided Name Value Range Interpretation Code Description Data Roberta rce(s) Supporting Document(s) Color of Urine [facility] Appearance of Urine CLEAR Abnormal (applies to non-nu meric results) [facility] pH of Urine by Test strip 5.5 5-8 [facility] Specific gravity of Urine by Refractometry 1.020 1.005-1.030 [facility] Leukocyte esterase [Presence] in Urine by Test strip NEGATIVE Above high normal [facility] @DO MICRO!!!! Nitrite [Presence] in Urine by Test strip NEGATIVE Above high normal [facility] @DO MICRO!!!! Protein [Presence] in Urine by Test strip NEGATIVE Above high normal [facility] @DO MICRO!!!! Glucose [Mass/volume] in Urine by Automated test strip NEGATIVE NEG ATIVE [facility] Ketones [Presence] in Urine by Test strip NEGATI VE Abnormal (applies to non- numeric results) [facility] Urobilinogen [Presence] in Urine 0.2-1 EU/dl [facility] Bilirubin.total [Presence] in Urine by Automated test strip NEGATIVE [facility] Erythrocytes [#/volume] in Urine by Test strip LARGE NEGATIV E Above high normal [facility] @DO MICRO!!!! URINE MICROSCOPIC ADDED Microscopic Added [facility] ID Date Data Source [id number] 01/05/2020 11:12:00 AM EST [facility] @01/05/20 1106: UA W/ MICRO added. RFLXG = UMIC.Method of Collection:: Voided @01/05/20 1106: UA W/ MICRO added. RFLXG = UMIC.Method of Collection:: Voided Name Value Range Interpretation Code Description Data Roberta rce(s) Supporting Document(s) Erythrocytes [#/volume] in Urine by Manual count 3-5 /hpf 0-5 [facility] Leukocytes [#/volume] in Urine by Manual count 8-12 /hpf 0-5 Above high normal [facility] Cells [Type] in Urine sediment by Light microscopy [facility] Bacteria [Presence] in Urine sediment by Light microscopy NEGATIVE Above high normal [facility] ID Date Data Source [id number] 01/05/2020 12:00:00 AM [facility] Name Value Range Interpretation Code Description Data Roberta rce(s) Supporting Document(s) SARS-CoV2 Rapid PCR [facility] This lab was ordered by [facility] and reported by [facility]. Procedure Social History Code Duration Value Status Description Data Source(s ) Smoking 12/13/2020 12:00:00 AM EDT Patient is a former smoker completed Patient is a former smoker [facility] ([facility], [facility]) 09/19/2020 07:35:00 AM EDT Never smoker completed Never s [facility] Smoking 09/19/2020 07:35:00 AM EDT Never smoker completed Never s [facility] Smoking 02/05/2020 12:00:00 AM EST Former Smoker completed Former Smoker eCW1 ([facility]) Smoking 02/05/2020 12:00:00 AM EST Former Smoker completed Former Smoker eCW1 ([facility]) Smoking 02/05/2020 12:00:00 AM EST Former Smoker completed Former Smoker eCW1 ([facility]) Smoking 01/08/2020 12:00:00 AM EST Former Smoker completed Former Smoker eCW1 ([facility]) Smoking 01/08/2020 12:00:00 AM EST Former Smoker completed Former Smoker eCW1 ([facility]) Smoking 01/08/2020 12:00:00 AM EST Former Smoker completed Former Smoker eCW1 ([facility]) 01/05/2020 11:52:48 AM EST Never smoker completed Never [facility] Smoking 01/05/2020 11:52:00 AM EST Never smoker completed Never [facility] Vital Signs ID Date Data Source UNK Name Value Range Interpretation Code Description Data Source(s) Systolic blood pressure 109 mm[Hg] 109 mm[Hg] M EDENT ([facility], [facility]) Diastolic blood pressure 78 mm[Hg] 78 mm[Hg] [facility] ([facility], [facility]) Heart rate 78 /min 78 /min [facility] ([facility], [facility]) Respiratory rate 16 /min 16 /min [facility] ( [facility], [facility]) Body height 65.5 [in_i] 65.5 [in_i] [facility] ([facility]) 5'5.50" Body mass index (BMI) [Ratio] 31.5 kg/m2 31.5 k g/m2 [facility] ([facility]) Oxygen saturation in Arterial blood by Pulse oximetry 97 % 97 % MEDENT ([facility], [facility]) Body temperature 98.4 [degF] 98.4 [degF] MEDENT ([facility], [facility]) Body weight 192.00 [lb_av] 192.00 [lb_av] MEDEN T ([facility], [facility]) Body weight 201 [lb_av] 201 [lb_av] eCW1 ([facility]) Body height 65 [in_i] 65 [in_i] eCW1 ([facility]) Body mass index (BMI) [Ratio] 33.44 kg/m2 33.44 kg/m2 eCW1 ([facility]) Heart rate 62 /min 62 /min eCW1 ([facility]) Respiratory rate 18 /min 18 /min eCW1 ([facility]) Body temperature 97.0 [degF] 97.0 [degF] eCW1 ( [facility]) Systolic blood pressure 118 mm[Hg] 118 mm[Hg] e CW1 ([facility]) Diastolic blood pressure 82 mm[Hg] 82 mm[Hg] eCW1 ([facility]) Body weight 205.6 [lb_av] 205.6 [lb_av] eCW1 ([facility]) Body height 65 [in_i] 65 [in_i] eCW1 ([facility]) Body mass index (BMI) [Ratio] 34.21 kg/m2 34.21 kg/m2 eCW1 ([facility]) Heart rate 73 /min 73 /min eCW1 ([facility]) Respiratory rate 18 /min 18 /min eCW1 ([facility]) Body temperature 97.3 [degF] 97.3 [degF] eCW1 ( [facility]) Systolic blood pressure 145 mm[Hg] 145 mm[Hg] e CW1 ([facility]) Diastolic blood pressure 87 mm[Hg] 87 mm[Hg] eCW1 ([facility]) Systolic blood pressure 120 mm[Hg] 120 mm[Hg] M EDENT ([facility], [facility]) Diastolic blood pressure 86 mm[Hg] 86 mm[Hg] MEDENT ([facility], [facility]) Heart rate 80 /min 80 /min MEDENT ([facility], [facility]) Respiratory rate 16 /min 16 /min MEDENT ( [facility], [facility]) Oxygen saturation in Arterial blood by Pulse oximetry 99 % 99 % MEDENT ([facility], [facility]) Body temperature 98.7 [degF] 98.7 [degF] MEDENT ([facility], [facility]) Body weight 200.00 [lb_av] 200.00 [lb_av] MEDEN T ([facility], [facility]) Body height 65.5 [in_i] 65.5 [in_i] MEDENT ([facility], [facility]) 5'5.50" Body mass index (BMI) [Ratio] 32.8 kg/m2 32.8 k g/m2 MEDENT ([facility], [facility]) ID Date Data Source [id number] 01/06/2020 12:25:23 PM EST [facility] Name Value Range Interpretation Code Description Data Source(s) TRANSFER FROM [facility] Patient Treatment Plan of Care Planned Activity Planned Date Details Description Data Source (s) doxycycline hyclate 100 MG Oral Capsule [Vibramycin] 12:00:00 AM EST eCW1 ([facility]) doxycycline hyclate 100 MG Oral Capsule [Vibramycin] 12:00:00 AM EST eCW1 ([facility]) doxycycline hyclate 100 MG Oral Capsule [Vibramycin] 12:00:00 AM EST eCW1 ([facility])
[2020-12-16 13:30] LABS: BLOOD UREA NITROGEN 10 MG/DL (7-18); CALCIUM LEVEL 8.6 MG/DL (8.5-10.1); CARBON DIOXIDE LEVEL 26 MEQ/L (21-32); CHLORIDE LEVEL 107 MEQ/L (98-107); CK-MB VALUE MASS 1.4 NG/ML (<3.6); CPK CREATINE PHOSPHOKINASE 118 U/L (26-192); CREATININE FOR GFR 1.11 MG/DL (0.55-1.30); GLOMERULAR FILTRATION RATE 54.3 (>51); GLUCOSE, FASTING 100 MG/DL (70-100); MB/CK RELATIVE INDEX 1.19 (< OR =4); POTASSIUM SERUM 4.3 MEQ/L (3.5-5.1); SODIUM LEVEL 137 MEQ/L (136-145); TROPONIN I < 0.02 NG/ML (< 0.10)
[2020-12-16 14:30] VITALS: BP 147/94
--- NOTE | 2020-12-16 18:28 | ECGEPIP ---
[facility] - ED Test Date: 2020-12-16 Pat Name: YUNIEL SUAZO Department: Room: - Gender: Female [employer]: : [id number] Requested By: Sidra Olmedo Order Number: [id number] Reading MD: Sidra Olmedo Measurements Intervals [place] Rate: 63 P: 24 AK: 148 QRS: 9 QRSD: 76 T: 14 QT: 424 QTc: 433 Interpretive Statements Normal sinus rhythm Low voltage QRS inferior infarct prwp NSTTW abnormalities decreased rate 01/05/20 Electronically Signed on 12-16-2020 18:27:53 EDT by Sidra Olmedo
== END 2020-12-16 14:52 | disposition home or self-care (01) ==
LOC: M ED 11:32
DX: U07.1 COVID-19 (principal); R55 Syncope and collapse; I25.2 Old myocardial infarction; R94.31 Abnormal electrocardiogram [ECG] [EKG]; Z88.2 Allergy status to sulfonamides; Z88.1 Allergy status to other antibiotic agents; Z88.8 Allergy status to other drugs, medicaments and biological substances; Z91.013 Allergy to seafood

== ENCOUNTER 2020-12-16 16:36 | Outpatient (CLI) | payer OTHER ==
--- NOTE | 2020-12-16 14:07 | HPEPDOC ---
[facility] Medical History & Physical Date of Admission Dec 16, 2020 Date of Service: Dec 16, 2020 Attending Physician: Angi Ugalde MD History and Physical CHIEF COMPLAINT: Fevers, diarrhea, loss of consciousness HISTORY OF PRESENT ILLNESS: The patient is a 55-year-old female with past medical history of endometriosis, kidney stones who presented to [facility] emergency room after having a syncopal episode at home. According to the patient her symptoms began last Wednesday and has worsened until today with fevers, chills, diarrhea with associated abdominal pain. She tested positive for Covid 19 on 12/13/2020 after having an encounter with Covid positive patient. She states today she became nauseous had some lightheadedness and collapsed. Her episode was witnessed by her . It was also noted to be having some questionable shaking during this episode. She decided to come to the emergency room to be further evaluated. She denies chest pain or any increased shortness of breath during this time. In the emergency room her vital signs were stable. Chest x-ray and labs were unremarkable. The patient was offered monoclonal antibody infusion for which she agreed. I was called to admit the patient to the monoclonal antibody infusion unit. On exam was negative. She was updated on the adverse reactions to the monoclonal antibody as she had asked in detail. Consent form was obtained. REVIEW OF SYSTEMS: CONSTITUTIONAL: Denies unexplained weight gain or weight loss, night sweats EYES: Denies eye drainage, eye pain, visual changes, dry/irritated eye EARS, NOSE, MOUTH, THROAT: Denies difficulty hearing, ringing in ears, mouth sores, loose teeth, sore throat, facial numbness or pain NECK: Denies swollen glands CARDIOVASCULAR: Denies irregular heartbeat, racing heart, chest pains, swelling of feet or legs, pain in legs with walking RESPIRATORY: Denies shortness of breath, night sweats, wheezing, sputum production, oxygen at home, coughing up blood, cough lasting > 1 month GASTROINTESTINAL: Denies constipation, bloody stool, heartburn GENITOURINARY: Denies painful urination, bloody urine, frequent urination, urgency, leaking urine, impotence MUSCULOSKELETAL: Denies joint pain, muscle pain, leg swelling INTEGUMENTARY: Denies rash, itching, new skin lesion, change in existing skin lesion, hair loss or increase, breast changes. NEUROLOGICAL: Denies headaches, numbness or tingling PSYCHIATRIC: Denies depression, anxiety, recurrent bad thoughts, mood swings, hallucinations PAST MEDICAL HISTORY: Endometriosis PAST SURGICAL HISTORY: Partial hysterectomy Lithotripsy FAMILY HISTORY: Sr.breast cancer. Alive SOCIAL HISTORY: . Denies smoking, drug use. Drinks alcohol socially. Lives with her locally. Follows with a primary care doctor regularly ALLERGIES: Please see below. HOME MEDICATIONS: Please see below. PHYSICAL EXAMINATION: VS: Stable on room air CONSTITUTIONAL: No acute distress, resting comfortably, AAO x 3 EYES: PERRLA, EOM intact HENT, MOUTH: Normocephalic, atraumatic, moist mucous membranes, NECK: SUPPLE, no JVD, no lymphadenopathy, no carotid bruit CV: Regular rate and rhythm, S1S2 normal, no murmurs/rubs/gallops RESPIRATORY: Clear to auscultation bilaterally, no rales/rhonchi/wheezes GI: BS positive in 4 quadrants, soft, nontender, nondistended, no rebound or guarding, no organomegaly : Deferred MUSCULOSKELETAL: Normal ROM. No cyanosis, clubbing, swelling, joint deformity, extremity edema INTEGUMENTARY: Intact, no rashes, no lesions, no erythema NEUROLOGIC: Cranial Nerves II-XII are intact, no focal deficits PSYCHIATRIC: Mood and affect are normal LABORATORY DATA: Please see below IMAGING: Chest x-ray: No acute cardiopulmonary abnormalities ASSESSMENT: 55-year-old female with past medical history of endometriosis, kidney stones admitted for monoclonal antibody infusion for treatment of Covid 19 infection. PLAN: Covid-19 infection -Diagnosis date 12/13/2020 -Denies shortness of breath, chest pain, cough. -Unvaccinated -Monoclonal antibody infusion ordered. Consent obtained. Adverse reactions discussed with patient. Loss of consciousness likely vasovagal episode -Likely secondary to abdominal pain with diarrhea, nausea, vomiting -ECG within normal limits, troponin negative, all labs unremarkable -No history of syncopal episodes, no cardiac or neurological history -Currently neurologically intact, awake alert oriented 3 -Follow-up with PCP after discharge DISPOSITION: To be discharged from monoclonal antibody infusion unit after completion. Home Medications Scheduled PRN Acetaminophen (Acetaminophen) 325 Mg Tablet, 650 MG PO Q6H PRN for PAIN / FEVER Allergies Coded Allergies: iodine (Verified Allergy, Severe, throat closed, 01/09/20) shellfish derived (Verified Allergy, Severe, throat closed, 01/09/20) Sulfa (Sulfonamide Antibiotics) (Verified Allergy, Mild, rash, 01/09/20) ciprofloxacin (Verified Adverse Reaction, Mild, headache, 01/09/20) A-FIB/CHADSVASC A-FIB History Current/History of A-Fib/PAF?: No Current PO Anticoag Therapy: No Age/Risk Factor Scoring CHADSVASC: CHADSVASC Response (Comments) Value Age Risk Factor Age < 65 years old 0 Gender Risk Factor Female 1 Hx of CHF No 0 Hx of HTN No 0 Hx of Stroke/TIA/or VTE No 0 Hx of Diabetes No 0 Hx of Vascular Disease No 0 Total 1 Treatment Treatment ordered: NONE Other anticoagulant ordered: none Angi Ugalde MD Dec 16, 2020 14:07
[2020-12-16 15:30] VITALS: BP 130/76
[2020-12-16 16:00] VITALS: BP 111/72
[2020-12-16 16:30] VITALS: BP 107/66
[~2020-12-16 16:36] MED LIST changes: +ALBUTEROL 90 MCG/ACT 8GM HFA INHALER INH PRN; +ALBUTEROL SULFATE 2.5 MG/0.5 ML INH NEB SOLN INH PRN; +BAMLANIVIMAB 700 MG, ETESEVIMAB 1,400 MG in NS 250 ML IV ONE; +EPINEPHrine INJ 1 MG/ML 1ML AMP IM PRN; +NS 1,000 ML IV SCH; +diphenhydrAMINE 50MG/ML VIAL (J1200) IV PRN; +methylPREDNISolone 125MG 2ML VIAL IV PRN
[2020-12-16 17:30] VITALS: BP 123/73
== END 2020-12-16 17:30 | disposition home or self-care (01) ==
LOC: M OPCLI4 16:36
PROVIDERS: ATTEND Internal Medicine
DX: U07.1 COVID-19 (principal); Z88.1 Allergy status to other antibiotic agents; Z88.2 Allergy status to sulfonamides; Z91.013 Allergy to seafood